=== PATIENT | female | born 1970 | race Caucasian/White ===

== ENCOUNTER 2018-09-02 16:11 | Inpatient (IN) | payer OTHER ==
--- NOTE | 2018-09-02 17:52 | PDOC ---
Attending Attestation - HPI HPI: 09/02/18 20:10 The patient is a 48 year old female with no PMH who presents to the ER with shortness of breath and bilateral leg swelling. Patient is on 3L of narcan at home and bipap at night. Patient denies cough, fever, chills, N/V/D/C. Allergies: sulfa Past surgical history: None reported. Social history: No reported alcohol, drug or cigarette use. - Physicial Exam PE: 09/02/18 20:37 ADULT PHYSICAL EXAM Constitutional: Awake, alert, oriented. No acute distress. Head: Normocephalic. Atraumatic Eyes: PERRL. EOMI. Conjunctivae are not pale. ENT: Mucous membranes are moist and intact. Posterior pharynx without exudates or erythema. Uvula midline. Neck: Supple. Full ROM. No lymphadenopathy. Cardiovascular: (+) Tachycardic. Regular rhythm. S1, S2 regular. Distal pulses are 2+ and symmetric. Pulmonary/Chest: (+) Orthopnea. (+) Conversational dyspnea. (+) Wheezing and diminished breath sounds bilaterally. (+) Hypoxic to the 70s when talking and up to the 90s at rest. Abdominal: Soft and non-distended. There is no tenderness. No rebound, guarding or rigidity. No organomegaly. No palpable masses. Good bowel sounds. Musculoskeletal: No cyanosis. No clubbing. Full range of motion in all extremities. Nocalf tenderness. Radial/pedal pulses are intact and 2+ bilaterally Skin: (+) Cellulitis to the lower abdomen and bilateral lower extremities. (+) Pitting edema and redness to the lower abdominal wall down to the lower extremities. Neurological: Alert and oriented to person, place, and time. Cranial nerves II -XII are grossly intact. Normal speech. Strength is grossly symmetric. No sensory deficits. Psychiatric: Good eye contact. Normal interaction, affect and behavior. <Deirdre Lopez - Last Filed: 09/02/18 20:39> - Resident Resident Name: Roxann Lyles - ED Attending Attestation I have performed the following: I have examined & evaluated the patient, The case was reviewed & discussed with the resident, I agree w/resident's findings & plan, Exceptions are as noted - Critical Care Time Total Critical Care Time: 45 Critical Care Statement: The care of this patient involved high complexity decision making to prevent further life threatening deterioration of the patient 's condition and/or to evaluate & treat vital organ system(s) failure or risk of failure. - Medical Decision Making 09/02/18 17:51 I, Dr. Karin Jefferson, DO, attest that this document has been prepared under my direction and personally reviewed by me in its entirety. I further attest, that it accurately reflects all work, treatment, procedures and medical decision -making performed by me. 09/02/18 19:59 a/p: 48yo female with SOB, Tachy, hypoxia, LE swelling -bedside ultrasound negative for acute pulm edema or pleural effusion -wheezing on exam -labs pending -abg -will start nebs, suspect copd exacerbation -also with LE swelling, concern for DVT/PE - will send for cta chest and duplex ultrasound legs -also concern for heart failure -pt wears 3L nc at home and bipap at night -no cough, no fevers -cellulitis to legs and lower abd- will add cultures and start vancomycin -pitting edema to abd wall, LE 09/02/18 21:11 pt with hypercapnic resp failure, will place on bipap, give nebs copd exacerbation chf exacerabtion LE cellulitis pt at CTA, then will microblog [facility] for admission 09/02/18 22:19 no dvt on ultrasound 09/02/18 23:56 cta negative for acute pe 09/02/18 23:56 microblog sent to [facility] for admission 09/03/18 00:27 resident discussed the case with [facility] who accepts the patient to service <Karin Jefferson - Last Filed: 09/03/18 00:27> Heart Score/ECG Review - ECG Intrepretation Comment:: 09/02/18 21:14 sinus at 95, R axis, nl interval, t wave inversions v3, III, avf, abnl ekg, baseline artifact <Karin Jefferson - Last Filed: 09/03/18 00:27>
[2018-09-02 19:48] LABS: INR 1.08 (0.83-1.09); PROTHROMBIN TIME (PATIENT) 12.7 SEC (9.7-13.0)
[2018-09-02 19:51] LABS: ACTIVATED PTT 28.4 SECONDS (25.2-36.5)
[2018-09-02] MEDS ORDERED: VANCOMYCIN 1 GM in D5W (PRE-DOCKED) 1,000 MG/250 ML IVPB ONE (19:58)
[2018-09-02] MEDS ORDERED: ALBUTEROL SO4 2.5/IPRATROPIUM 0.5 INH SOL 3 ML VIAL.NEB. NEB ONE ×3 (19:58→23:23)
[2018-09-02 20:02] LABS: ALBUMIN 2.7 g/dl (3.4-5.0); ALK PHOS 142 U/L (45-117); ANION GAP 4 MMOL/L (8-16); BILIRUBIN,TOTAL 0.3 mg/dL (0.2-1); BLOOD UREA NITROGEN 13 mg/dL (7-18); CALCIUM 8.1 mg/dL (8.5-10.1); CHLORIDE 101 mmol/L (98-107); CO2 39 mmol/L (21-32); CREATININE 0.7 mg/dL (0.55-1.3); GLUCOSE,RANDOM 114 mg/dL (74-106); MAGNESIUM 2.1 mg/dL (1.8-2.4); N-TERMINAL BNP 1741.3 pg/ml (5-125); POTASSIUM 4.3 mmol/L (3.5-5.1); SGOT/AST 19 U/L (15-37); SGPT/ALT 19 U/L (13-61); SODIUM 144 mmol/L (136-145); TOT PROT 6.3 g/dl (6.4-8.2)
[2018-09-02 20:12] LABS: BASO % 0.7 % (0-2.0); EOS % 1.2 % (0-4.5); HEMATOCRIT 46.5 % (32.4-45.2); HEMOGLOBIN 13.7 GM/dL (10.7-15.3); LYMPH % 18.1 % (8-40); MCH 22.2 pg (25.7-33.7); MCHC 29.6 g/dl (32.0-36.0); MEAN CELL VOLUME 74.9 fl (80-96); MEAN PLT VOLUME 8.8 fl (7.5-11.1); MONO % 10.5 % (3.8-10.2); NEUT % 69.5 % (42.8-82.8); PLATELET COUNT 253 K/MM3 (134-434); RBC 6.21 M/mm3 (3.60-5.2); RDW 23.3 % (11.6-15.6); WHITE BLOOD COUNT 3.9 K/mm3 (4.0-10.0)
[2018-09-02] MEDS ORDERED: methylPREDNISolone NA SUCC 125 MG/2 ML VIAL IVPUSH ONE (20:46)
[2018-09-02 20:47] LABS: ARTERIAL BLD GAS O2 SATURATION 85.2 % (90-98.9); ARTERIAL BLOOD GAS BASE EXCESS 8.7 meq/l (-2-2); ARTERIAL BLOOD GAS pH 7.32 (7.35-7.45); CARBOXYHEMOGLOBIN 1.4 gm% (0.5-2.0)
[2018-09-02] MEDS ORDERED: FUROSEMIDE 40 MG/4 ML INJECTABLE VIAL IVPUSH ONE (20:47)
[2018-09-02 20:49] LABS: ARTERIAL BLOOD GAS PCO2 74.6 mmHg (35-45)
--- NOTE | 2018-09-02 21:13 | PDOC ---
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 She states that it has become harder for her to get out of bed and walk. She endorses SOB. Denies chest pain, cough, fevers, chills, recent travel, OCP use, recent surgery, palpitations, syncope, n/v/d, alcohol use, drug use, headache, changes in vision , lightheadedness. She states she was placed on diuretics but they have not been helping as much. PMD: Jordan PMH: see hpi PSH: cholecystectomy, tubal ligation Meds: Metformin 500mg BID, Verapamil 240mg?, HCTZ, Xarelto Allergies: sulfa Social: quit tobacco 5 months ago, was smoking 1ppd Past History - Past Medical History Allergies/Adverse Reactions: Allergies Allergy/AdvReac Type Severity Reaction Status Date / Time Sulfa (Sulfonamide Allergy Severe Hives Verified 09/02/18 17:11 Antibiotics) COPD: Yes HTN: Yes Hypercholesterolemia: Yes - Suicide/Smoking/Psychosocial Hx Smoking History: Former smoker Have you smoked in the past 12 months: No If you are a former smoker, when did you quit?: 5 months ago Information on smoking cessation initiated: No Hx Alcohol Use: No Drug/Substance Use Hx: No Review of Systems - Review of Systems Constitutional: No: Chills, Fever, Weakness HEENTM: No: Eye Pain, Double Vision Respiratory: Yes: Shortness of Breath. No: Cough, Hemoptysis Cardiac (ROS): Yes: Edema. No: Chest Pain, Lightheadedness, Palpitations, Syncope, Chest Tightness ABD/GI: Yes: Abdominal Distended, Abdominal cramping. No: Constipated, Diarrhea , Nausea, Vomiting : No: Burning, Dysuria, Frequency, Flank Pain, Hematuria Musculoskeletal: No: Back Pain, Joint Pain, Neck Pain Integumentary: Yes: Erythema Neurological: No: Headache, Numbness, Tingling, Tremors, Weakness *Physical Exam - Vital Signs Last Vital Signs Temp Pulse Resp BP Pulse Ox 98.2 F 106 H 20 106/82 71 L 09/02/18 17:12 09/02/18 17:12 09/02/18 17:12 09/02/18 17:12 09/02/18 17:12 - Physical Exam General Appearance: Yes: Appropriately Dressed, Moderate Distress, Obese HEENT: positive: EOMI, DARLIN, Pharynx Normal Neck: positive: Trachea midline, Supple. negative: Lymphadenopathy (R), Lymphadenopathy (L) Respiratory/Chest: positive: Decreased Breath Sounds, Wheezing. negative: Crackles, Rales, Rhonchi Cardiovascular: positive: Regular Rate, S1, S2, Tachycardia. negative: Edema, JVD, Murmur Vascular Pulses: Carotid (R): 2+, Carotid (L): 2+ Gastrointestinal/Abdominal: positive: Soft, Distended. negative: Guarding, Rebound, Tenderness Musculoskeletal: negative: CVA Tenderness Extremity: positive: Normal Capillary Refill, Normal Inspection, Pedal Edema ( pitting edema up to thigh), Erythema. negative: Calf Tenderness, Inflammation Integumentary: positive: Normal Color, Dry, Warm, Erythema (on legs and abdomen) Neurologic: positive: top stop attacher II-XII NML intact, Fully Oriented, Alert, Normal Mood/ Affect, Normal Response, Motor Strength 5/5 Moderate Sedation - Procedure Monitoring Vital Signs: Procedure Monitoring Vital Signs Temperature 98.2 F 09/02/18 17:12 Pulse Rate 106 H 09/02/18 17:12 Respiratory Rate 20 09/02/18 17:12 Blood Pressure 106/82 09/02/18 17:12 O2 Sat by Pulse Oximetry (%) 71 L 09/02/18 17:12 ED Treatment Course - LABORATORY CBC & Chemistry Diagram: 09/02/18 19:10 09/02/18 19:10 - ADDITIONAL ORDERS Additional order review: Laboratory Results 09/02/18 09/02/18 09/02/18 20:00 19:10 19:10 PT with INR INR PTT (Actin FS) Anticoagulation Therapy No Result Required. Puncture Site No Result Required. ABG pH 7.32 L ABG pCO2 at Pt Temp 74.6 H* ABG pO2 at Pt Temp 59.0 L ABG HCO3 37.2 H ABG O2 Sat (Measured) 85.2 L ABG O2 Content 15.0 ABG Base Excess 8.7 H Wes Test No Result Required. Carboxyhemoglobin 1.4 Methemoglobin 0.2 L O2 Delivery Device No Result Required. Oxygen Flow Rate No Result Required. Vent Mode No Result Required. Vent Rate No Result Required. Mechanical Rate No Result Required. Pressure Support Vent No Result Required. Sodium 144 Potassium 4.3 Chloride 101 Carbon Dioxide 39 H Anion Gap 4 L BUN 13 Creatinine 0.7 Creat Clearance w eGFR > 60 Random Glucose 114 H Calcium 8.1 L Magnesium 2.1 Total Bilirubin 0.3 AST 19 ALT 19 Alkaline Phosphatase 142 H Troponin I 0.03 B-Natriuretic Peptide 1741.3 H Total Protein 6.3 L Albumin 2.7 L Serum , Qual Negative 09/02/18 19:10 PT with INR 12.70 INR 1.08 PTT (Actin FS) 28.4 Anticoagulation Therapy Puncture Site ABG pH ABG pCO2 at Pt Temp ABG pO2 at Pt Temp ABG HCO3 ABG O2 Sat (Measured) ABG O2 Content ABG Base Excess Wes Test Carboxyhemoglobin Methemoglobin O2 Delivery Device Oxygen Flow Rate Vent Mode Vent Rate Mechanical Rate Pressure Support Vent Sodium Potassium Chloride Carbon Dioxide Anion Gap BUN Creatinine Creat Clearance w eGFR Random Glucose Calcium Magnesium Total Bilirubin AST ALT Alkaline Phosphatase Troponin I B-Natriuretic Peptide Total Protein Albumin Serum , Qual 09/02/18 19:10 RBC 6.21 H MCV 74.9 L MCHC 29.6 L RDW 23.3 H MPV 8.8 Neutrophils % 69.5 Lymphocytes % 18.1 Monocytes % 10.5 H Eosinophils % 1.2 Basophils % 0.7 Medical Decision Making - Medical Decision Making 09/02/18 21:17 Pt is a 48yo F with PMH of COPD (on 3L O2 at home), HTN, HLD, Heroin use (13 years sober) presenting to ED with complaints of bilateral leg swelling, abdominal distension for 2 weeks. She states that it has become harder for her to get out of bed and walk. She endorses SOB. Denies chest pain, cough, fevers, chills, recent travel, OCP use, recent surgery, palpitations, syncope, n/v/d, alcohol use, drug use, headache, changes in vision, lightheadedness. She states she was placed on diuretics but they have not been helping as much. LMP 1 month ago Vitals: saturating 70s on RA, tachycardia, bp wnl, afebrile PE: decreased breath sounds, slight expiratory wheezing, distended abdomen, pitting edema up to thighs bilaterally, warm and erythematous legs and abdomen. Ddx includes but not limited to chf, copd, pe, cellulitis, dvt, ascites Placed pt on NRB- 100%, changed to NC, saturating low 90s/high 80s on 5L. HR 90-100. BP wnl. Pt talking in full sentences with some SOB. POCUS- no abdominal FF, b lines. -cbc, cmp, abg, coags, serum preg, ua, trop -ekg, CTA, CXR (cancelled), DVT study -lasix, duoneb, Bipap Lab significant for pH 7.32, PCO2 70s, HCO3 39. No anion gap. Most likely from retention and respiratory acidosis. pending US and CTA, UA 09/03/18 00:43 -US negative for DVT. shows edema CT neaative for PE. Air trapping seen in lungs. Pt saturating in 90s on RA. Speaking in full sentences without sob. normal white count EKG shows nsr. no donaldo or depressions. Will admit for chf, copd, hypercapnia. 09/03/18 00:43 *DC/Admit/Observation/Transfer Diagnosis at time of Disposition: COPD (chronic obstructive pulmonary disease) Qualifiers: COPD type: unspecified COPD Qualified Code(s): J44.9 - Chronic obstructive pulmonary disease, unspecified CHF (congestive heart failure) Qualifiers: Heart failure type: unspecified Heart failure chronicity: acute Qualified Code( s): I50.9 - Heart failure, unspecified Respiratory failure with hypercapnia Qualifiers: Chronicity: acute Qualified Code(s): J96.02 - Acute respiratory failure with hypercapnia - Discharge Dispostion Condition at time of disposition: Improved Decision to Admit order: Yes - Referrals - Patient Instructions - Post Discharge Activity
[2018-09-02 21:33] LABS: ANISOCYTOSIS 2+
[2018-09-02] MEDS ORDERED: VANCOMYCIN 1 GRAM (PRE-DOCKED) 1,000 MG/250 ML BAG IVPB ONE (23:23)
[2018-09-02] MEDS ORDERED: methylPREDNISolone NA SUCC 125 MG/2 ML VIAL ONE (23:24)
[2018-09-02] MEDS ORDERED: FUROSEMIDE 40 MG/4 ML INJECTABLE VIAL ONE (23:24)
[2018-09-03] MEDS ORDERED: ACETAMINOPHEN 1000 MG/100 ML VIAL (NON FORMULARY) IVPB ONE (00:28)
[2018-09-03] MEDS ORDERED: ACETAMINOPHEN INJECTION 100 ML IVPB ONE (00:45)
--- NOTE | 2018-09-03 00:46 | HP ---
CHIEF COMPLAINT: shortness of breath PCP: Cardio- Dr. Moe HISTORY OF PRESENT ILLNESS: 48F w/ pmhx of COPD (on 3L at home), HTN, HLD, NIDDM, stroke, heroin use presented to the ED with worsening shortness of breath, b/l leg swelling and abdominal distension for 2 weeks. Pt states she was previously seen at [facility] for her symptoms, but was subsequently discharged and told to follow up with her doctor. Since discharge, she continued to experience worsening shortness of breath as well as b/l ankle, leg and abdominal distension. She states she was diagnosed with CHF in 2016 at [facility] and takes a diuretic which as not been helping her. Denies chest pain, headaches, dizzines, f/c, changes in vision, lightheadedness, cough, OCP use, recent surgery. Since coming to the ED she was given Lasix 40 IVP, Solumedrol 125 IVP, Vancomycin 1g, and Duonebs. Since getting the Lasix in the ED, she admits to having 3 urinary episodes. 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 Family History: Has 2 sons, 1 daughter Mother- DM Father- CAD, Alzheimer's, DM 5 brothers- all healthy 1 sister- healthy Allergies Sulfa (Sulfonamide Antibiotics) Allergy (Severe, Verified 09/02/18 17:11) Hives HOME MEDICATIONS: Ambulatory Orders Albuterol Sulfate Inhaler - [Ventolin Hfa Inhaler -] 1 - 2 inh PO QID 09/03/18 Budesonide/Formeterol Fumarate [SYMBICORT 160/4.5mcg -] 2 inh PO BID 09/03/18 Folic Acid 1 mg PO DAILY 09/03/18 Furosemide 10 mg PO BID 09/03/18 Hydrochlorothiazide 25 mg PO DAILY 09/03/18 Metformin HCl [Glucophage] 500 mg PO BID 09/03/18 REVIEW OF SYSTEMS CONSTITUTIONAL: +generalized weakness Absent: fever, chills, diaphoresis, malaise, loss of appetite, weight change HEENT: Absent: rhinorrhea, nasal congestion, throat pain, throat swelling, difficulty swallowing, mouth swelling CARDIOVASCULAR: +peripheral edema Absent: chest pain, syncope, palpitations, irregular heart rate, lightheadedness , RESPIRATORY: +shortness of breath, dyspnea with exertion Absent: cough, orthopnea, wheezing, stridor, hemoptysis GASTROINTESTINAL: +abdominal pain, abdominal distension Absent: , nausea, vomiting, diarrhea, constipation, melena, hematochezia GENITOURINARY: +frequency Absent: dysuria, frequency, urgency, hesitancy, hematuria, flank pain MUSCULOSKELETAL: Absent: myalgia, arthralgia, joint swelling, back pain, neck pain NEUROLOGIC: Absent: headache, focal weakness or paresthesias, dizziness, unsteady gait, seizure, mental status changes, bladder or bowel incontinence PHYSICAL EXAMINATION Vital Signs - 24 hr 09/02/18 09/02/18 17:12 17:36 Temperature 98.2 F Pulse Rate 106 H Respiratory 20 Rate Blood Pressure 106/82 106/82 O2 Sat by Pulse 71 L 100 Oximetry (%) GENERAL: AAOx3. NAD. Resting comfortaby in bed. Speaks in complete sentences. HEENT: AT/NC. EOMI. DARLIN. Moist mucus membranes. NECK: Normal range of motion, supple without lymphadenopathy, JVD, or masses. LUNGS: CTA B/L. Symmetric chest rise. No HEART: RRR. Normal S1, S2. No murmurs noted. ABDOMEN: Obese. Soft, mildly TTP. Diffuse abdominal swelling; +redness throughout. MUSCULOSKELETAL: Normal range of motion at all joints. No bony deformities or tenderness. No CVA tenderness. UPPER EXTREMITIES: 2+ pulses, warm, well-perfused. No cyanosis. No clubbing. +b/ l UE swlling LOWER EXTREMITIES: 2+ pulses, warm, well-perfused. No calf tenderness. +b/l LE swelling, 3+ pitting edema. NEUROLOGICAL: Responds to commands. PSYCHIATRIC: Cooperative. Good eye contact. Appropriate mood and affect. SKIN: Anasarca. Diffuse redness throughout. Laboratory Results - last 24 hr 09/02/18 09/02/18 09/02/18 19:10 19:10 19:10 WBC 3.9 L RBC 6.21 H Hgb 13.7 Hct 46.5 H MCV 74.9 L MCH 22.2 L MCHC 29.6 L RDW 23.3 H Plt Count 253 MPV 8.8 Absolute Neuts (auto) 2.7 Neutrophils % 69.5 Lymphocytes % 18.1 Monocytes % 10.5 H Eosinophils % 1.2 Basophils % 0.7 Nucleated RBC % 1 H Poikilocytosis 1+ Anisocytosis 2+ Stomatocytes 1+ PT with INR 12.70 INR 1.08 PTT (Actin FS) 28.4 Anticoagulation Therapy Puncture Site ABG pH ABG pCO2 at Pt Temp ABG pO2 at Pt Temp ABG HCO3 ABG O2 Sat (Measured) ABG O2 Content ABG Base Excess Wes Test Carboxyhemoglobin Methemoglobin O2 Delivery Device Oxygen Flow Rate Vent Mode Vent Rate Mechanical Rate Pressure Support Vent Sodium 144 Potassium 4.3 Chloride 101 Carbon Dioxide 39 H Anion Gap 4 L BUN 13 Creatinine 0.7 Creat Clearance w eGFR > 60 Random Glucose 114 H Calcium 8.1 L Magnesium 2.1 Total Bilirubin 0.3 AST 19 ALT 19 Alkaline Phosphatase 142 H Troponin I 0.03 B-Natriuretic Peptide 1741.3 H Total Protein 6.3 L Albumin 2.7 L Serum , Qual 09/02/18 09/02/18 19:10 20:00 WBC RBC Hgb Hct MCV MCH MCHC RDW Plt Count MPV Absolute Neuts (auto) Neutrophils % Lymphocytes % Monocytes % Eosinophils % Basophils % Nucleated RBC % Poikilocytosis Anisocytosis Stomatocytes PT with INR INR PTT (Actin FS) Anticoagulation Therapy No Result Required. Puncture Site No Result Required. ABG pH 7.32 L ABG pCO2 at Pt Temp 74.6 H* ABG pO2 at Pt Temp 59.0 L ABG HCO3 37.2 H ABG O2 Sat (Measured) 85.2 L ABG O2 Content 15.0 ABG Base Excess 8.7 H Wes Test No Result Required. Carboxyhemoglobin 1.4 Methemoglobin 0.2 L O2 Delivery Device No Result Required. Oxygen Flow Rate No Result Required. Vent Mode No Result Required. Vent Rate No Result Required. Mechanical Rate No Result Required. Pressure Support Vent No Result Required. Sodium Potassium Chloride Carbon Dioxide Anion Gap BUN Creatinine Creat Clearance w eGFR Random Glucose Calcium Magnesium Total Bilirubin AST ALT Alkaline Phosphatase Troponin I B-Natriuretic Peptide Total Protein Albumin Serum , Qual Negative IMAGING: * CTA Chest: No gross evid of PE within main pulm artery and its proximal branches, b/l. Mild cardiomegaly. Subcentimeter and borderline mediastinal LN which are nonspecific. Mosaic pattern of the lung suggestive of air trapping. Atelectatic changes in the L upper lobe w/o gross evid of focal infiltrates, PTX , or pleural effusion. ASSESSMENT/PLAN: 48F w/ pmhx of COPD (on 3L at home), HTN, HLD, NIDDM, stroke, heroin use presented to the ED with worsening shortness of breath, b/l leg swelling and abdominal distension for 2 weeks. #Acute CHF exacerbation -Pt presented with worsening shortness of breath. On PE, she has anasarca. BNP elevated at 1741.3. She was given Lasix in the ED after which she responded well and had good urine output; likely acute CHF exacerbation. -Lasix 40 IVP given in ED; will continue Lasix 40 QD -daily weights, I/O's -Cont Duonebs/Albuterol; Will hold off on steroids for now -Trops, Prealbumin ordered -Influenza ordered; BCx taken -Pt is well-known to [facility]. Diastolic CHF with elevated PAP per verbal report with written pending from 06/2018 echo at [facility] She has frequent visits to the hospital and known hx of air trapping found on CT chest. Last stress test was in 2014. She currently sees Dr. Moe (cardio). Will need to obtain records in AM. #Anasarca/Abdominal swelling/diffuse erythema; likely 2/2 acute CHF exacerbation -Duplex showed no evid of DVT -Arterial dopplers ordered -Will hold Abx for now as unlikely cellulitis given pt is afebrile with no white count. -Per [facility], this is a chronic issue for her. #Hx of COPD -Likely not in exacerbation, but will treat with Duonebs if needed PRN #HTN -needs med rec #Pulmonary HTN -Last echo per [facility] revealed pulm HTN, elevated PAP. Will obtain records in AM from [facility]. #HLD -needs med rec #NIDDM -Hold home meds -BGM/ISS ACHS -A1c ordered #Hx of Stroke -No current neurological deficits #Prophylaxis -Lovenox 40 SQ #FEN -Limit PO intake due to fluid overload; no IV fluids -recheck lytes in AM -Diabetic/Sodium-controlled diet dispo -admit to tele inpatient -full code -Needs med rec Visit type - Emergency Visit Emergency Visit: Yes ED Registration Date: 09/02/18 Care time: The patient presented to the Emergency Department on the above date and was hospitalized for further evaluation of their emergent condition. - New Patient This patient is new to me today: Yes Date on this admission: 09/03/18 - Critical Care Critical Care patient: No
[2018-09-03 02:14] LABS: URINE APPEARANCE CLEAR; URINE BILIRUBIN NEGATIVE (<2.0 mg/dL); URINE COLOR STRAW; URINE GLUCOSE (UA) NEGATIVE (NEGATIVE); URINE KETONE NEGATIVE (NEGATIVE); URINE LEUK ESTERASE NEGATIVE (NEGATIVE); URINE NITRITE NEGATIVE (NEGATIVE); URINE PROTEIN NEGATIVE (NEGATIVE); URINE UROBILINOGEN NEGATIVE mg/dL (0.2-1.0)
--- NOTE | 2018-09-03 04:23 | PN ---
Teaching Attending Note Name of Resident: Aishwarya Martinez ATTENDING PHYSICIAN STATEMENT I saw and evaluated the patient. I reviewed the resident's note and discussed the case with the resident. I agree with the resident's findings and plan as documented. SUBJECTIVE: Seen and examined; please refer to resident note for further historical information. Briefly, this is a 48 y/o female presenting to the ER after being sent home from [facility]. She has a complaint of exertional SOB and worsening LE edema extending up to her abdomen. It has been worsening over the course of several weeks. She was able to ambulate in the ER without O2 to the washroom. She is speaking in full sentences. This is her first time being admitted to [facility]; as stated she normally goes to [facility] and has all her workup done there. She admits to a history of CHF. I spoke to the ER personally at [facility]; I am informed that she came in several times for similar issues. She was just discharged from in 07/2018 (was also there in jun for leg/abdominal pain and swelling also) for COPD/CHF; this appears to be a continuation of that issue. Echo done 06/2018 at [facility] mild concentric LVH with normal systolic function but evidence of LV-diastolic dysfunction. PAP 54mmHg (moderate pulmonary HTN) also mentioned). She had a stress test in 2014 but the reading isn't available. She gave a list of medications from memory that have odd dosing; will confirm with her pharmacy prior to continuing. 10 sys ROS done and negative aside from HPI PMH, PSH, Family hx, Social hx reviewed Medication reconciliation pending OBJECTIVE: VS, labs, imaging reviewed NAD, AAO, resting comfortably in bed NC AT EOMI PERRLA RRR s1/2 no mgr Lungs with very mild crackles, w/ sym exp NT ND +BS. pitting edema extending to lower abdomen from her legs CN2-12 wnl, no fnd Normal mood, appropriate affect EKG reviewed Old records discussed with [facility] ER; pending faxed over in the AM CTA chest shows no PE with mild cardiomegally and mosaic pattern of the lung suggesting air trapping. ASSESSMENT AND PLAN: Patient presents with months of increasing LE/abdominal edema and some mild acute on chronic SOB. Recently seen for same issues at [facility] with recent workup done. She is hemodynamically stable and afebrile. Was walking without O2 earlier in the ER but initially 80's (3L documented at home). 1) Acute Hypoxia -Based on anasarca, clinical history, etc. likely 2/2 CHF exacerbation though she is a former smoker with a large history so COPD should also be considered though would be much less likely. Will discuss separately. Improved now. PRN O2 and incentive spirometry. ABG shows a primary chronic respiratory acidosis with secondary metabolic alkalosis. Suspect potential for underlying LYNDON, etc. She is on 3L at home and is saturating well with this. 2) CHF exacerbation, likely diastolic, with anasarca -Diastolic CHF with elevated PAP per verbal report with written pending from 2018 echo at [facility]. Diurese with 40 IV QD (stated was on 10 BID at home), consult CV (her's appears to be associated with the [facility] group-Dr. Moe ). Confirm home meds and resume GDMT. Will defer further workup and treatment to CV. Monitor renal function and optimize K/Mg 3) Anasarca with leg/abdominal pain -This does not represent cellulitis; hold off on abx. The chances of her having 1/2 of her body area covered in celluitis with a normal white count and no fever is very low. Likely 2/2 #1. Will obtain venous and arterial dopplers to r/o any underlying vascular disease. This is, per the ER at [facility], a chronic issue for her 4) Hx COPD -Indication of air trapping on CXR; recently got treated at [facility] for CHF and got nebs there as well. Will do ATC nebs and continue home long actings; if no improvement with tx CHF will treat her COPD, but I feel that the CHF is likely the primary process at this moment. 5) HTN -Verify and continue home medications 6) Pulmonary HTN (PAP 54 on recent echo) -Noted 7) HLD -Verify and continue home medications 8) DM -Hold PO meds; SSI. A1c can be checked as OP 9) Hx CVA -Verify and continue home meds; would be helpful to review old records to see what exactly caused this, etc. 10) Hx Heroin abuse -Noted; will check old records from [facility].
[2018-09-03] MEDS: INSULIN SLIDING SCALE (NOVOLOG) 1 VIAL SQ SCH ×4 (06:35→23:21)
[2018-09-03 07:02] LABS: BASO % 0.4 % (0-2.0); EOS % 0.1 % (0-4.5); HEMATOCRIT 46.1 % (32.4-45.2); HEMOGLOBIN 13.8 GM/dL (10.7-15.3); LYMPH % 7.1 % (8-40); MCH 22.3 pg (25.7-33.7); MCHC 29.8 g/dl (32.0-36.0); MEAN CELL VOLUME 74.7 fl (80-96); MEAN PLT VOLUME 9.1 fl (7.5-11.1); MONO % 1.8 % (3.8-10.2); NEUT % 90.6 % (42.8-82.8); PLATELET COUNT 229 K/MM3 (134-434); RBC 6.17 M/mm3 (3.60-5.2); RDW 23.3 % (11.6-15.6); WHITE BLOOD COUNT 4.6 K/mm3 (4.0-10.0)
[2018-09-03 08:11] LABS: ALBUMIN 2.7 g/dl (3.4-5.0); ALK PHOS 161 U/L (45-117); ANION GAP 7 MMOL/L (8-16); BILIRUBIN,TOTAL 0.5 mg/dL (0.2-1); BLOOD UREA NITROGEN 17 mg/dL (7-18); CALCIUM 8.2 mg/dL (8.5-10.1); CHLORIDE 97 mmol/L (98-107); CO2 36 mmol/L (21-32); GLUCOSE,RANDOM 214 mg/dL (74-106); POTASSIUM 4.4 mmol/L (3.5-5.1); PREALBUMIN 12.4 mg/dl (20-40); SGOT/AST 17 U/L (15-37); SGPT/ALT 19 U/L (13-61); SODIUM 140 mmol/L (136-145); TOT PROT 6.5 g/dl (6.4-8.2)
[2018-09-03] MEDS ORDERED: ALBUTEROL SO4 2.5/IPRATROPIUM 0.5 INH SOL 3 ML VIAL.NEB. NEB PRN (08:33)
--- NOTE | 2018-09-03 09:00 | PN ---
Physical Exam: SUBJECTIVE: Patient seen and examined at bedside no acute events overnight; patient states that she is in a lot of pain with her legs and the abdominal swelling is very uncomfortable for her but she feels her breathing is a little better thus far; denies CP/N/V fevers or chills OBJECTIVE: Vital Signs Period Temp Pulse Resp BP Sys/Sun Pulse Ox Last 24 Hr 98.2 F-98.6 F 88-106 19-20 106-144/66-88 71-100 GENERAL: The patient is awake, alert, and fully oriented, in no acute distress. EYES: PEERLA; EOMI; no scleral icterus. NECK: no JVD; no lympahdenopathy LUNGS: diminished breath sounds at the bases; no rales, wheezes. HEART: Regular rate and rhythm, S1, S2 without murmur, rub or gallop. ABDOMEN: obese; distended striations; painful to touch;' slightly erythematous. EXTREMITIES: b/l 2+ pitting edema warm; tender to touch. PSYCH: Normal mood, normal affect. SKIN: Warm, dry, normal turgor, no rashes or lesions noted Laboratory Results - last 24 hr 09/02/18 09/02/18 09/02/18 19:10 19:10 19:10 WBC 3.9 L RBC 6.21 H Hgb 13.7 Hct 46.5 H MCV 74.9 L MCH 22.2 L MCHC 29.6 L RDW 23.3 H Plt Count 253 MPV 8.8 Absolute Neuts (auto) 2.7 Neutrophils % 69.5 Lymphocytes % 18.1 Monocytes % 10.5 H Eosinophils % 1.2 Basophils % 0.7 Nucleated RBC % 1 H Poikilocytosis 1+ Anisocytosis 2+ Stomatocytes 1+ PT with INR 12.70 INR 1.08 PTT (Actin FS) 28.4 Anticoagulation Therapy Puncture Site ABG pH ABG pCO2 at Pt Temp ABG pO2 at Pt Temp ABG HCO3 ABG O2 Sat (Measured) ABG O2 Content ABG Base Excess Wes Test Carboxyhemoglobin Methemoglobin O2 Delivery Device Oxygen Flow Rate Vent Mode Vent Rate Mechanical Rate Pressure Support Vent Sodium 144 Potassium 4.3 Chloride 101 Carbon Dioxide 39 H Anion Gap 4 L BUN 13 Creatinine 0.7 Creat Clearance w eGFR > 60 POC Glucometer Random Glucose 114 H Calcium 8.1 L Magnesium 2.1 Total Bilirubin 0.3 AST 19 ALT 19 Alkaline Phosphatase 142 H Troponin I 0.03 B-Natriuretic Peptide 1741.3 H Total Protein 6.3 L Albumin 2.7 L Prealbumin Serum , Qual Urine Color Urine Appearance Urine pH Ur Specific Wolf Urine Protein Urine Glucose (UA) Urine Ketones Urine Blood Urine Nitrite Urine Bilirubin Urine Urobilinogen Ur Leukocyte Esterase 09/02/18 09/02/18 09/03/18 19:10 20:00 02:00 WBC RBC Hgb Hct MCV MCH MCHC RDW Plt Count MPV Absolute Neuts (auto) Neutrophils % Lymphocytes % Monocytes % Eosinophils % Basophils % Nucleated RBC % Poikilocytosis Anisocytosis Stomatocytes PT with INR INR PTT (Actin FS) Anticoagulation Therapy No Result Required. Puncture Site No Result Required. ABG pH 7.32 L ABG pCO2 at Pt Temp 74.6 H* ABG pO2 at Pt Temp 59.0 L ABG HCO3 37.2 H ABG O2 Sat (Measured) 85.2 L ABG O2 Content 15.0 ABG Base Excess 8.7 H Wes Test No Result Required. Carboxyhemoglobin 1.4 Methemoglobin 0.2 L O2 Delivery Device No Result Required. Oxygen Flow Rate No Result Required. Vent Mode No Result Required. Vent Rate No Result Required. Mechanical Rate No Result Required. Pressure Support Vent No Result Required. Sodium Potassium Chloride Carbon Dioxide Anion Gap BUN Creatinine Creat Clearance w eGFR POC Glucometer Random Glucose Calcium Magnesium Total Bilirubin AST ALT Alkaline Phosphatase Troponin I B-Natriuretic Peptide Total Protein Albumin Prealbumin Serum , Qual Negative Urine Color Straw Urine Appearance Clear Urine pH 6.0 Ur Specific Wolf 1.012 Urine Protein Negative Urine Glucose (UA) Negative Urine Ketones Negative Urine Blood Negative Urine Nitrite Negative Urine Bilirubin Negative Urine Urobilinogen Negative Ur Leukocyte Esterase Negative 09/03/18 09/03/18 09/03/18 05:30 05:30 06:29 WBC 4.6 RBC 6.17 H Hgb 13.8 Hct 46.1 H MCV 74.7 L MCH 22.3 L MCHC 29.8 L RDW 23.3 H Plt Count 229 MPV 9.1 Absolute Neuts (auto) 4.1 Neutrophils % 90.6 H Lymphocytes % 7.1 L D Monocytes % 1.8 L D Eosinophils % 0.1 D Basophils % 0.4 Nucleated RBC % 0 Poikilocytosis Anisocytosis Stomatocytes PT with INR INR PTT (Actin FS) Anticoagulation Therapy Puncture Site ABG pH ABG pCO2 at Pt Temp ABG pO2 at Pt Temp ABG HCO3 ABG O2 Sat (Measured) ABG O2 Content ABG Base Excess Wes Test Carboxyhemoglobin Methemoglobin O2 Delivery Device Oxygen Flow Rate Vent Mode Vent Rate Mechanical Rate Pressure Support Vent Sodium 140 Potassium 4.4 Chloride 97 L Carbon Dioxide 36 H Anion Gap 7 L BUN 17 Creatinine 1.0 Creat Clearance w eGFR 58.93 POC Glucometer 244 Random Glucose 214 H Calcium 8.2 L Magnesium Total Bilirubin 0.5 AST 17 ALT 19 Alkaline Phosphatase 161 H Troponin I 0.02 B-Natriuretic Peptide Total Protein 6.5 Albumin 2.7 L Prealbumin 12.4 L Serum , Qual Urine Color Urine Appearance Urine pH Ur Specific Wolf Urine Protein Urine Glucose (UA) Urine Ketones Urine Blood Urine Nitrite Urine Bilirubin Urine Urobilinogen Ur Leukocyte Esterase Active Medications Generic Name Dose Route Start Last Admin Trade Name Freq PRN Reason Stop Dose Admin Albuterol/Ipratropium 1 amp 09/03/18 08:33 Duoneb - NEB Q6H PRN SHORTNESS OF BREATH Albuterol/Ipratropium 1 amp 09/03/18 14:00 Duoneb - NEB RTID [facility] Enoxaparin Sodium 40 mg 09/03/18 10:00 Lovenox - SQ DAILY [facility] Furosemide 40 mg 09/03/18 10:00 Lasix Injection - IVPUSH DAILY [facility] Insulin Aspart 1 vial 09/03/18 07:00 09/03/18 06:35 Novolog Vial Sliding Scale - SQ 4 units ACHS [facility] Administration Protocol Fluticasone/Salmeterol 1 puff 09/03/18 10:00 Advair 100mcg/50mcg - IH BID [facility] ASSESSMENT/PLAN: 48F w/ pmhx of COPD (on 3L at home), HTN, HLD, NIDDM, stroke, heroin use presented to the ED with worsening shortness of breath, b/l leg swelling and abdominal distension for 2 weeks. #Acute CHF exacerbation -Pt presented with worsening shortness of breath. On PE, she has anasarca. BNP elevated at 1741.3. She was given Lasix in the ED after which she responded well and had good urine output; likely acute CHF exacerbation. -lasix 40 IV BID -daily weights, I/O's -Cont Duonebs/Albuterol; -Influenza ordered : negative -Pt is well-known to [facility]. in process of getting records #Anasarca/Abdominal swelling/diffuse erythema; likely 2/2 acute CHF exacerbation -Duplex showed no evidence of DVT -Arterial dopplers ordered -Will hold Abx for now as unlikely cellulitis given pt is afebrile with no white count. -Per [facility], this is a chronic issue for her. #Hx of COPD -Likely not in exacerbation, but will treat with Duonebs if needed PRN #HTN -c/w hydralazine and verapamil #Pulmonary HTN -Last echo per [facility] revealed pulm HTN, elevated PAP. Will obtain records in AM from [facility]. #HLD not on meds as per pharmacy #NIDDM -Holding home metformin -BGM/ISS ACHS -a1c is 6.1 #Hx of Stroke -No current neurological deficits #Prophylaxis -Lovenox 40 SQ Problem List - Problems (1) CHF (congestive heart failure) Code(s): I50.9 - HEART FAILURE, UNSPECIFIED Qualifiers: Heart failure type: unspecified Heart failure chronicity: acute Qualified Code(s): I50.9 - Heart failure, unspecified (2) COPD (chronic obstructive pulmonary disease) Code(s): J44.9 - CHRONIC OBSTRUCTIVE PULMONARY DISEASE, UNSPECIFIED Qualifiers: COPD type: unspecified COPD Qualified Code(s): J44.9 - Chronic obstructive pulmonary disease, unspecified Visit type - Emergency Visit Emergency Visit: Yes ED Registration Date: 09/02/18 Care time: The patient presented to the Emergency Department on the above date and was hospitalized for further evaluation of their emergent condition. - New Patient This patient is new to me today: Yes Date on this admission: 09/03/18 - Critical Care Critical Care patient: No
[2018-09-03] MEDS ORDERED: FUROSEMIDE 40 MG/4 ML INJECTABLE VIAL IVPUSH SCH (10:00)
[2018-09-03] MEDS ORDERED: ENOXAPARIN NA (PORCINE) 40 MG/0.4 ML DISP.SYRIN SQ SCH ×2 (10:00→22:00)
[2018-09-03] MEDS: FLUTICASONE/SALMETEROL 100 MCG/50 MCG DISKUS IH SCH ×2 (10:45→23:20)
[2018-09-03] MEDS: ALBUTEROL SO4 2.5/IPRATROPIUM 0.5 INH SOL 3 ML VIAL.NEB. NEB SCH ×2 (14:08→20:00)
--- NOTE | 2018-09-03 14:21 | EKG ---
Test Reason : Blood Pressure : / mmHG Vent. Rate : 095 BPM Atrial Rate : 095 BPM P-R Int : 142 ms QRS Dur : 066 ms QT Int : 338 ms P-R-T Axes : 056 121 002 degrees QTc Int : 424 ms POOR DATA QUALITY, INTERPRETATION MAY BE ADVERSELY AFFECTED NORMAL SINUS RHYTHM POSSIBLE LEFT ATRIAL ENLARGEMENT RIGHT AXIS DEVIATION NONSPECIFIC T WAVE ABNORMALITY ABNORMAL ECG NO PREVIOUS ECGS AVAILABLE Confirmed by BROCK MEDINA, SANGITA ([id number]) on 09/03/2018 2:20:43 PM Referred By: Confirmed By:SANGITA GUTIÉRREZ MD
--- NOTE | 2018-09-03 15:09 | CON.CARD ---
Consult Consult Specialty:: Cardiology Reason for Consultation:: Fluid overload - History of Present Illness Chief Complaint: Lower extremity edema. Abdominal distention. ANAYA History of Present Illness: This is a 48 year old female with a PMH of COPD and is on home O2, HTN, HLD, possible past TIA, and heroin use in the past. She presents to the ED with the complaint of 2 weeks of worsening lower extremity edema, abdominal distension, and progressive ANAYA. EKG showed NSR with right axis deviation, normal intervals, and NSSTTW changes. Troponin negative BNP 1,741 - Past Medical History ...: No - Alcohol/Substance Use Hx Alcohol Use: No - Smoking History Smoking history: Former smoker Have you smoked in the past 12 months: No If you are a former smoker, when did you quit?: 5 months ago Home Medications - Allergies Allergies/Adverse Reactions: Allergies Allergy/AdvReac Type Severity Reaction Status Date / Time Sulfa (Sulfonamide Allergy Severe Hives Verified 09/02/18 17:11 Antibiotics) - Home Medications Home Medications: Ambulatory Orders Albuterol Sulfate Inhaler - [Ventolin Hfa Inhaler -] 1 - 2 inh PO QID 09/03/18 Budesonide/Formeterol Fumarate [SYMBICORT 160/4.5mcg -] 2 inh PO BID 09/03/18 Folic Acid 1 mg PO DAILY 09/03/18 Furosemide 40 mg PO BID 09/03/18 Gabapentin [Neurontin -] 100 mg PO Q8H 09/03/18 Hydralazine HCl 50 mg PO DAILY 09/03/18 Metformin HCl [Glucophage] 500 mg PO BID 09/03/18 Verapamil HCl [Verapamil ER] 240 mg PO BID 09/03/18 Vital Signs: Vital Signs Temperature 98.4 F 09/03/18 14:00 Pulse Rate 86 09/03/18 14:00 Respiratory Rate 20 09/03/18 14:00 Blood Pressure 151/93 09/03/18 14:00 O2 Sat by Pulse Oximetry (%) 90 L 09/03/18 01:41 Constitutional: Yes: No Distress HENT: Yes: WNL Neck: Yes: WNL Respiratory: Yes: CTA Bilaterally Gastrointestinal: Yes: Distention Cardiovascular: Yes: Regular Rate and Rhythm (NL S1S2 no MRHG) JVD: Yes Edema: LLE: 2+, RLE: 2+ Neurological: Yes: Alert, Oriented - Other Data Labs, Other Data: CBC, BMP 09/03/18 05:30 09/03/18 05:30 INR, PTT INR 1.08 (0.83-1.09) 09/02/18 19:10 Troponin, BNP 09/02/18 09/03/18 19:10 05:30 Troponin I 0.03 0.02 B-Natriuretic Peptide 1741.3 H Troponin, BNP 09/02/18 09/03/18 19:10 05:30 Troponin I 0.03 0.02 B-Natriuretic Peptide 1741.3 H Assessment/Plan 48 year old female with a PMH of COPD and is on home O2, HTN, HLD, possible past TIA, and heroin use in the past. She presents to the ED with the complaint of 2 weeks of worsening lower extremity edema, abdominal distension, and progressive ANAYA. EKG showed NSR with right axis deviation, normal intervals, and NSSTTW changes. Troponin negative BNP 1,741 CHF Obtain an echocardiogram Continue Lasix 40 mg IVSS BID Daily I's/O's/Wt's/Lytes Further plans once know if this is HFpEF vs HFrEF Will follow with you
--- NOTE | 2018-09-03 17:55 | PN ---
Teaching Attending Note Name of Resident: Oliva García ATTENDING PHYSICIAN STATEMENT I saw and evaluated the patient. I reviewed the resident's note and discussed the case with the resident. I agree with the resident's findings and plan as documented. SUBJECTIVE: No fever or chills . No SOB , feels better after initial diuresis OBJECTIVE: NAD , awake, alert, cooperative CV: RRR, no MRG Lungs: decreased breath sounds both lung camara Ext : 2+ edema on legs , and on abd wall wiht increased warmth and erythema Abd: abd wall edema , tenderness, increased warmth and erythema ASSESSMENT AND PLAN: 48 y/o lady with h/o DM , HTN, D CHF, COPD on 3 L of O2 at home , heroin abuse ( many years ago ) , CVA, recent admission to [facility] for CHF and non compliance who presented with SOb and worsening LE edema after stopping her home lasix . she was diagnosed with Acute diastolic heart fialure exacerbation 1- Acute on chronic diastolic CHF exacerbation: - increased lasix to 40 BID - monitor weight . - No evidence of cellulitis on abd wall or ext - echo pending . - request snet to obtain records from [facility] 2- HTN: pharmacy called . she is on verapamil 240 BId and hydralazine 50 daily . - adjust meds and increase HZN to 50 BID and change verapamil to 240 daily - monitor 3- h/o COPD : not in exacerbation - cont Nebs - cont home O2 4- DM : SSI . A1c 6.1 but sugar > 200 5- LE edema , du eto heart failure , no cellulitis. US with No DVT. dc arterial doppler DVT X HLOC
[2018-09-03] MEDS ORDERED: RIVAROXABAN 20 MG TABLET PO SCH (18:00)
[2018-09-03] MEDS ORDERED: PT OWN MED DRAWER 7, Y5N ONE (22:14)
[2018-09-03] MEDS: hydrALAZINE HCL 25 MG TABLET (FP) PO SCH (23:19)
[2018-09-03] MEDS: FUROSEMIDE 40 MG/4 ML INJECTABLE VIAL IVPUSH SCH (23:20)
[2018-09-04] MEDS ORDERED: ACETAMINOPHEN 325 MG TABLET (FP) PO ONE ×2 (00:17→00:45)
[2018-09-04] MEDS ORDERED: ACETAMINOPHEN 325 MG TABLET (FP) ONE (00:26)
[2018-09-04] MEDS: INSULIN SLIDING SCALE (NOVOLOG) 1 VIAL SQ SCH ×3 (06:20→17:03)
[2018-09-04] MEDS: FUROSEMIDE 40 MG/4 ML INJECTABLE VIAL IVPUSH SCH ×2 (06:21→14:18)
[2018-09-04 07:31] LABS: ANION GAP 4 MMOL/L (8-16); BLOOD UREA NITROGEN 18 mg/dL (7-18); CALCIUM 7.9 mg/dL (8.5-10.1); CHLORIDE 97 mmol/L (98-107); CO2 39 mmol/L (21-32); CREATININE 0.8 mg/dL (0.55-1.3); GLUCOSE,RANDOM 93 mg/dL (74-106); PHOSPHOROUS 4.8 mg/dL (2.5-4.9); POTASSIUM 4.2 mmol/L (3.5-5.1); SODIUM 141 mmol/L (136-145)
[2018-09-04] MEDS: ALBUTEROL SO4 2.5/IPRATROPIUM 0.5 INH SOL 3 ML VIAL.NEB. NEB SCH ×3 (08:00→20:48)
[2018-09-04 08:59] LABS: HEMATOCRIT 44.3 % (32.4-45.2); HEMOGLOBIN 13.1 GM/dL (10.7-15.3); MCH 22.1 pg (25.7-33.7); MCHC 29.6 g/dl (32.0-36.0); MEAN CELL VOLUME 74.9 fl (80-96); MEAN PLT VOLUME 8.7 fl (7.5-11.1); PLATELET COUNT 255 K/MM3 (134-434); RBC 5.92 M/mm3 (3.60-5.2); RDW 23.2 % (11.6-15.6); WHITE BLOOD COUNT 3.2 K/mm3 (4.0-10.0)
--- NOTE | 2018-09-04 09:35 | PN ---
Physical Exam: SUBJECTIVE: Patient seen and examined at bedside- no acute events overnight; patient states she feels her breathing is slightly improving though she needs oxygen consistently(this is baseline for her) and states she is urinating alot; denies any CP/N/V fevers or chills OBJECTIVE: Vital Signs Period Temp Pulse Resp BP Sys/Sun Pulse Ox Last 24 Hr 97.5 F-98.4 F 85-107 20-20 116-152/66-99 94-96 GENERAL: The patient is awake, alert, and fully oriented, in no acute distress. EYES: PEERLA; EOMI; no scleral icterus. . NECK: no JVD; no lymphadenopathy LUNGS: CTA B/L; no rales, rhonchi or wheezing. HEART: Regular rate and rhythm, S1, S2 without murmur, rub or gallop. ABDOMEN: distended; non-tender; striation present; +BS slightly erythematous and warm to touch EXTREMITIES: 2+ pulses, warm to touch B/L; 1-2+ pitting edema B/L PSYCH: Normal mood, normal affect. SKIN: Warm, dry, normal turgor, no rashes or lesions noted Laboratory Results - last 24 hr 09/03/18 09/03/18 09/03/18 05:30 06:00 23:18 WBC RBC Hgb Hct MCV MCH MCHC RDW Plt Count MPV Sodium Potassium Chloride Carbon Dioxide Anion Gap BUN Creatinine Creat Clearance w eGFR POC Glucometer 239 Random Glucose Hemoglobin A1c % 6.1 Calcium Phosphorus Magnesium Influenza A (Rapid) Negative Influenza B (Rapid) Negative 09/04/18 09/04/18 09/04/18 05:50 05:50 06:19 WBC 3.2 L RBC 5.92 H Hgb 13.1 Hct 44.3 MCV 74.9 L MCH 22.1 L MCHC 29.6 L RDW 23.2 H Plt Count 255 MPV 8.7 Sodium 141 Potassium 4.2 Chloride 97 L Carbon Dioxide 39 H Anion Gap 4 L BUN 18 Creatinine 0.8 Creat Clearance w eGFR > 60 POC Glucometer 111 Random Glucose 93 Hemoglobin A1c % Calcium 7.9 L Phosphorus 4.8 Magnesium 2.0 Influenza A (Rapid) Influenza B (Rapid) Active Medications Generic Name Dose Route Start Last Admin Trade Name Freq PRN Reason Stop Dose Admin Albuterol/Ipratropium 1 amp 09/03/18 08:33 Duoneb - NEB Q6H PRN SHORTNESS OF BREATH Albuterol/Ipratropium 1 amp 09/03/18 14:00 09/03/18 20:00 Duoneb - NEB 1 amp RTID [facility]GIE Administration Furosemide 40 mg 09/03/18 22:00 09/04/18 06:21 Lasix Injection - IVPUSH 40 mg BIDLASIX [facility] Administration Hydralazine HCl 25 mg 09/03/18 22:00 09/03/18 23:19 Apresoline - PO 25 mg BID [facility] Administration Insulin Aspart 1 vial 09/03/18 07:00 09/04/18 06:20 Novolog Vial Sliding Scale - SQ Not Given ACHS [facility] Protocol Rivaroxaban 20 mg 09/04/18 18:00 Xarelto - PO DAILY@1800 ANGIE Fluticasone/Salmeterol 1 puff 09/03/18 10:00 09/03/18 23:20 Advair 100mcg/50mcg - IH 1 puff BID [facility] Administration Verapamil HCl 240 mg 09/04/18 10:00 Calan Sr - PO DAILY [facility] ASSESSMENT/PLAN: 48F w/ pmhx of COPD (on 3L at home), HTN, HLD, NIDDM, stroke, heroin use presented to the ED with worsening shortness of breath, b/l leg swelling and abdominal distension for 2 weeks. #Acute CHF exacerbation -weight this AM went from 119kg to 116 kg -lasix 40 IV BID -repeat echo pending -daily weights, I/O's -Cont Duonebs/Albuterol; -Influenza ordered : negative -Pt is well-known to [facility] in process of getting records #Anasarca/Abdominal swelling/diffuse erythema; likely 2/2 acute CHF exacerbation -Duplex showed no evidence of DVT -Arterial dopplers ordered -Will hold Abx for now as unlikely cellulitis given pt is afebrile with no white count. -Per [facility], this is a chronic issue for her. #Hx of COPD -Likely not in exacerbation, but will treat with Duonebs if needed PRN #HTN -c/w hydralazine 25 BID and verapamil 240 daily #Pulmonary HTN -Last echo per [facility] revealed pulm HTN, elevated PAP. Will obtain records in AM from [facility]. #HLD not on meds as per pharmacy #NIDDM -Holding home metformin -BGM/ISS ACHS -a1c is 6.1 #Hx of Stroke -No current neurological deficits -c/w xarelto 20 daily DVT PPX; xarelto 20 daily Problem List - Problems (1) CHF (congestive heart failure) Code(s): I50.9 - HEART FAILURE, UNSPECIFIED Qualifiers: Heart failure type: unspecified Heart failure chronicity: acute Qualified Code(s): I50.9 - Heart failure, unspecified (2) COPD (chronic obstructive pulmonary disease) Code(s): J44.9 - CHRONIC OBSTRUCTIVE PULMONARY DISEASE, UNSPECIFIED Qualifiers: COPD type: unspecified COPD Qualified Code(s): J44.9 - Chronic obstructive pulmonary disease, unspecified Visit type - Emergency Visit Emergency Visit: Yes ED Registration Date: 09/02/18 Care time: The patient presented to the Emergency Department on the above date and was hospitalized for further evaluation of their emergent condition. - New Patient This patient is new to me today: No - Critical Care Critical Care patient: No
[2018-09-04] MEDS ORDERED: VERAPAMIL HCL 240 MG E.R. TABLET (FP) PO SCH (10:00)
[2018-09-04] MEDS: hydrALAZINE HCL 25 MG TABLET (FP) PO SCH (10:04)
[2018-09-04] MEDS: FLUTICASONE/SALMETEROL 100 MCG/50 MCG DISKUS IH SCH ×2 (10:08→21:43)
--- NOTE | 2018-09-04 11:52 | PN ---
Teaching Attending Note Name of Resident: Oliva García ATTENDING PHYSICIAN STATEMENT I saw and evaluated the patient. I reviewed the resident's note and discussed the case with the resident. I agree with the resident's findings and plan as documented. SUBJECTIVE: no fever or chills . No abd pain ,SOB is getting better. OBJECTIVE: NAD, awake, alert, cooperative CV: RRR, no MRG Lungs: decreased breath sounds both lung camara Ext : 2+ edema on legs , and on abd wall with increased warmth and erythema ( improved though ) ASSESSMENT AND PLAN: 48 y/o lady with h/o DM , HTN, D CHF, COPD on 3 L of O2 at home , heroin abuse ( many years ago ) , CVA, recent admission to [facility] for CHF and non compliance who presented with SOb and worsening LE edema after stopping her home lasix . she was diagnosed with Acute diastolic heart fialure exacerbation 1- Acute on chronic diastolic CHF exacerbation: improved, weight decreased - cont lasix at 40 BID - monitor weight . - echo pending . - request sent to obtain records from [facility] 2- HTN: - place back on her home regimen. verapamil BId and hydralazin daily. not sure of indication of this dosing, but since she has a h/o stroke and being on xarelto, I wonder if she was diagnosed with A fib in past. she denies. will review records. 3- h/o COPD: not in exacerbation - cont Nebs - cont home O2 4- DM : SSI . A1c 6.1 but sugar > 200 5- LE edema , due to heart failure , no cellulitis. 6- Microcytosis: will start w/u with iron studies 7- Morbid Obesity: will rfer to Dr. Hatch for weight loss sx as outpt DVT PX: on xarelto HLOC
[2018-09-04] MEDS ORDERED: PT OWN MED DRAWER 7, Y5N ONE ×2 (15:08→21:04)
[2018-09-04] MEDS: RIVAROXABAN 20 MG TABLET PO SCH (17:03)
[2018-09-04] MEDS: VERAPAMIL HCL 240 MG E.R. TABLET (FP) PO SCH (21:42)
[2018-09-05] MEDS: FUROSEMIDE 40 MG/4 ML INJECTABLE VIAL IVPUSH SCH ×2 (06:48→14:35)
[2018-09-05] MEDS: INSULIN SLIDING SCALE (NOVOLOG) 1 VIAL SQ SCH ×4 (06:48→21:23)
[2018-09-05 07:30] LABS: ANION GAP 2 MMOL/L (8-16); BLOOD UREA NITROGEN 16 mg/dL (7-18); CHLORIDE 96 mmol/L (98-107); CO2 41 mmol/L (21-32); CREATININE 0.8 mg/dL (0.55-1.3); GLUCOSE,RANDOM 95 mg/dL (74-106); MAGNESIUM 2.3 mg/dL (1.8-2.4); PHOSPHOROUS 4.5 mg/dL (2.5-4.9); POTASSIUM 4.7 mmol/L (3.5-5.1); SODIUM 138 mmol/L (136-145)
[2018-09-05] MEDS: ALBUTEROL SO4 2.5/IPRATROPIUM 0.5 INH SOL 3 ML VIAL.NEB. NEB SCH ×3 (08:18→19:49)
[2018-09-05 08:32] LABS: HEMATOCRIT 43.4 % (32.4-45.2); HEMOGLOBIN 12.8 GM/dL (10.7-15.3); MCH 22.1 pg (25.7-33.7); MCHC 29.5 g/dl (32.0-36.0); MEAN CELL VOLUME 74.9 fl (80-96); MEAN PLT VOLUME 8.3 fl (7.5-11.1); PLATELET COUNT 281 K/MM3 (134-434); RBC 5.79 M/mm3 (3.60-5.2); RDW 22.9 % (11.6-15.6); WHITE BLOOD COUNT 2.5 K/mm3 (4.0-10.0)
[2018-09-05] MEDS: hydrALAZINE HCL 25 MG TABLET (FP) PO SCH (09:33)
[2018-09-05] MEDS: FLUTICASONE/SALMETEROL 100 MCG/50 MCG DISKUS IH SCH ×2 (09:33→21:25)
[2018-09-05] MEDS: VERAPAMIL HCL 240 MG E.R. TABLET (FP) PO SCH ×2 (09:34→21:25)
[2018-09-05 13:59] VITALS: BMI 41.5
--- NOTE | 2018-09-05 15:42 | PN ---
Progress Note, Physician History of Present Illness: 48 year old female with a care at [facility] of COPD and is on home O2, HTN , HLD, previous CVA, recurrent admissions for heart failrue and paroxysmal Afib. Poorly compliant with diuretics. She presents to the ED with the complaint of 2 weeks of worsening lower extremity edema, abdominal distension, and progressive ANAYA. - Current Medication List Current Medications: Active Medications Albuterol/Ipratropium (Duoneb -) 1 amp NEB Q6H PRN PRN Reason: SHORTNESS OF BREATH Albuterol/Ipratropium (Duoneb -) 1 amp NEB RTID [facility] Last Admin: 09/05/18 15:25 Dose: 1 amp Furosemide (Lasix Injection -) 40 mg IVPUSH BIDLASIX [facility] Last Admin: 09/05/18 06:48 Dose: 40 mg Hydralazine HCl (Apresoline -) 25 mg PO DAILY [facility] Last Admin: 09/05/18 09:33 Dose: 25 mg Insulin Aspart (Novolog Vial Sliding Scale -) 1 vial SQ [facility]; Protocol Last Admin: 09/05/18 12:00 Dose: Not Given Rivaroxaban (Xarelto -) 20 mg PO DAILY@1800 [facility] Last Admin: 09/04/18 17:03 Dose: 20 mg Fluticasone/Salmeterol (Advair 100mcg/50mcg -) 1 puff IH BID [facility] Last Admin: 09/05/18 09:33 Dose: 1 puff Verapamil HCl (Calan Sr -) 240 mg PO BID [facility] Last Admin: 09/05/18 09:34 Dose: 240 mg - Objective Vital Signs: Vital Signs Temperature 98.1 F 09/05/18 14:00 Pulse Rate 94 H 09/05/18 14:00 Respiratory Rate 20 09/05/18 14:00 Blood Pressure 109/64 09/05/18 14:00 O2 Sat by Pulse Oximetry (%) 96 09/05/18 12:00 Constitutional: Yes: Well Nourished Eyes: Yes: Conjunctiva Clear HENT: Yes: Atraumatic Neck: Yes: Trachea Midline Cardiovascular: Yes: Regular Rate and Rhythm, JVD, S1, S2 Respiratory: Yes: Regular, Rales Gastrointestinal: Yes: Normal Bowel Sounds (distended, abdominal wall edema) Edema: Yes Labs: CBC, BMP 09/05/18 05:30 09/05/18 05:30 INR, PTT INR 1.08 (0.83-1.09) 09/02/18 19:10 Problem List - Problems (1) CHF (congestive heart failure) Code(s): I50.9 - HEART FAILURE, UNSPECIFIED Qualifiers: Heart failure type: unspecified Heart failure chronicity: acute Qualified Code(s): I50.9 - Heart failure, unspecified Assessment/Plan Acute on chronic CHF. Paroxysmal Afib and prior CVA ho COPD poor compliance with medications. CHF: Improving weight and subjective diuresis on IV therapy. Continue I diuresis. Monitor weight and UO Echocardiogram Afib: Has remained in NSR on telemetry. Cont Verapamil and Xarelto
--- NOTE | 2018-09-05 16:53 | PN ---
Progress Note (short form) - Note Progress Note: Subjective: no fever or chills. No PAIGE , no SOB. LE edema improved .heaviness in her abd and legs Objective: Vital Signs: Last Vital Signs Temp Pulse Resp BP Pulse Ox 98.1 F 94 H 20 109/64 97 09/05/18 14:00 09/05/18 14:00 09/05/18 14:00 09/05/18 14:00 09/05/18 15:00 Laboratory Results - last 24 hr 09/04/18 09/05/18 09/05/18 17:02 05:30 05:30 WBC 2.5 L RBC 5.79 H Hgb 12.8 Hct 43.4 MCV 74.9 L MCH 22.1 L MCHC 29.5 L RDW 22.9 H Plt Count 281 MPV 8.3 Sodium 138 Potassium 4.7 Chloride 96 L Carbon Dioxide 41 H Anion Gap 2 L BUN 16 Creatinine 0.8 Creat Clearance w eGFR > 60 POC Glucometer 131 Random Glucose 95 Calcium 8.0 L Phosphorus 4.5 Magnesium 2.3 Ferritin 22.1 09/05/18 09/05/18 06:47 12:13 WBC RBC Hgb Hct MCV MCH MCHC RDW Plt Count MPV Sodium Potassium Chloride Carbon Dioxide Anion Gap BUN Creatinine Creat Clearance w eGFR POC Glucometer 104 106 Random Glucose Calcium Phosphorus Magnesium Ferritin Physical Exam: NAD, awake, alert, cooperative CV: RRR, no MRG Lungs: decreased breath sounds both lung camara Ext : 2+ edema on legs, and on abd wall . erythema improved Abd: soft, obese, edema , erythema ASSESSMENT AND PLAN: 48 y/o lady with h/o DM , HTN, D CHF, COPD on 3 L of O2 at home , heroin abuse ( many years ago ) , CVA, recent admission to [facility] for CHF and non compliance who presented with SOb and worsening LE edema after stopping her home lasix . she was diagnosed with Acute diastolic heart fialure exacerbation 1- Acute on chronic diastolic CHF exacerbation: improved, weight decreased - cont lasix at 40 BID - monitor weight . - echo pending . - records from [facility] still pending - not sure why on xarelto. records for ? fib 2- HTN: -cont verapamil and hydralazin 3- h/o COPD: not in exacerbation - cont Nebs - cont home O2 4- DM : SSI . 5- LE edema , due to heart failure , no cellulitis. 6- Microcytosis: iron studies still pending 7- Morbid Obesity: will refer to Dr. Hatch for weight loss sx as outpt DVT PX: on xarelto HLOC Visit type - Emergency Visit Emergency Visit: Yes ED Registration Date: 09/02/18 Care time: The patient presented to the Emergency Department on the above date and was hospitalized for further evaluation of their emergent condition. - New Patient This patient is new to me today: No - Critical Care Critical Care patient: No
[2018-09-05] MEDS: ACETAMINOPHEN 325 MG TABLET (FP) PO PRN (17:17)
[2018-09-05] MEDS: RIVAROXABAN 20 MG TABLET PO SCH (17:19)
[2018-09-05] MEDS ORDERED: PT OWN MED DRAWER 7, Y5N ONE ×2 (21:17→22:37)
[2018-09-06] MEDS: FUROSEMIDE 40 MG/4 ML INJECTABLE VIAL IVPUSH SCH ×2 (06:00→14:34)
[2018-09-06] MEDS: INSULIN SLIDING SCALE (NOVOLOG) 1 VIAL SQ SCH ×4 (06:51→22:15)
[2018-09-06 07:12] LABS: SERUM IRON SATURATION 11 % (15-55); TOTAL IRON BINDING CAPACITY 292 ug/dL (250-450); UIBC 261 ug/dL (131-425)
[2018-09-06] MEDS: ALBUTEROL SO4 2.5/IPRATROPIUM 0.5 INH SOL 3 ML VIAL.NEB. NEB SCH ×3 (07:56→20:54)
[2018-09-06] MEDS ORDERED: VANCOMYCIN HCL 1,500 MG in DEXTROSE 5%-WATER - 500 ML IVPB ONE ×2 (08:00→22:00)
--- NOTE | 2018-09-06 08:15 | PN ---
Physical Exam: SUBJECTIVE: Patient seen and examined OBJECTIVE: Vital Signs Period Temp Pulse Resp BP Sys/Sun Pulse Ox Last 24 Hr 97.4 F-98.1 F 80-94 18-20 109-138/59-76 94-97 GENERAL: The patient is awake, alert, and fully oriented, in no acute distress. EYES: PEERLA; EOMI; no scleral ictyers. NECK:no JVD. LUNGS: CTA B/L; no rales, rhonchi or wheezing HEART: Regular rate and rhythm, S1, S2 without murmur, rub or gallop. ABDOMEN: Soft, distedned; normoactive bowel sounds, no guarding, no rebound, no hepatosplenomegaly, no masses. EXTREMITIES: 2+ pulses, warm, well-perfused, 2+edema B/L. . PSYCH: Normal mood, normal affect. SKIN: Warm, dry, normal turgor, no rashes or lesions noted Laboratory Results - last 24 hr 09/05/18 09/05/18 09/05/18 05:30 05:30 12:13 WBC 2.5 L RBC 5.79 H Hgb 12.8 Hct 43.4 MCV 74.9 L MCH 22.1 L MCHC 29.5 L RDW 22.9 H Plt Count 281 MPV 8.3 POC Glucometer 106 Iron 31 TIBC 292 Iron Saturation 11 L 09/05/18 09/05/18 09/06/18 16:45 21:22 05:59 WBC RBC Hgb Hct MCV MCH MCHC RDW Plt Count MPV POC Glucometer 114 167 101 Iron TIBC Iron Saturation Active Medications Generic Name Dose Route Start Last Admin Trade Name Freq PRN Reason Stop Dose Admin Acetaminophen 650 mg 09/05/18 16:49 09/05/18 17:17 Tylenol - PO 650 mg Q6H PRN Administration PAIN Albuterol/Ipratropium 1 amp 09/03/18 08:33 Duoneb - NEB Q6H PRN SHORTNESS OF BREATH Albuterol/Ipratropium 1 amp 09/03/18 14:00 09/06/18 07:56 Duoneb - NEB 1 amp RTID ANGIE Administration Furosemide 40 mg 09/03/18 22:00 09/06/18 06:00 Lasix Injection - IVPUSH 40 mg BIDLASIX ANGIE Administration Hydralazine HCl 25 mg 09/05/18 10:00 09/05/18 09:33 Apresoline - PO 25 mg DAILY ANGIE Administration Vancomycin HCl 1,500 mg/ 500 mls @ 250 mls/hr 09/06/18 08:00 Dextrose IVPB 09/06/18 09:59 ONCE ONE Protocol Insulin Aspart 1 vial 09/03/18 07:00 09/06/18 06:51 Novolog Vial Sliding Scale - SQ Not Given ACHS ANGIE Protocol Rivaroxaban 20 mg 09/04/18 18:00 09/05/18 17:19 Xarelto - PO 20 mg DAILY@1800 ANGIE Administration Fluticasone/Salmeterol 1 puff 09/03/18 10:00 09/05/18 21:25 Advair 100mcg/50mcg - IH 1 puff BID ANGIE Administration Verapamil HCl 240 mg 09/04/18 22:00 09/05/18 21:25 Calan Sr - PO 240 mg BID ANGIE Administration ASSESSMENT/PLAN: 48F w/ pmhx of COPD (on 3L at home), HTN, HLD, NIDDM, stroke, heroin use presented to the ED with worsening shortness of breath, b/l leg swelling and abdominal distension for 2 weeks. #Acute CHF exacerbation -weight this AM went from 119kg to 113 kg -lasix 40 IV BID -repeat echo pending -daily weights, I/O's -Cont Duonebs/Albuterol; -Influenza ordered : negative -Pt is well-known to [facility]. in process of getting records #Hx of COPD -Likely not in exacerbation, but will treat with Duonebs if needed PRN #HTN -c/w hydralazine 25 daily and verapamil 240 BID #Pulmonary HTN -Last echo per [facility] revealed pulm HTN, elevated PAP. Will obtain records in AM from [facility]. #HLD not on meds as per pharmacy #NIDDM -Holding home metformin -BGM/ISS ACHS -a1c is 6.1 #Hx of Stroke -No current neurological deficits -c/w xarelto 20 daily DVT PPX; xarelto 20 daily Problem List - Problems (1) CHF (congestive heart failure) Code(s): I50.9 - HEART FAILURE, UNSPECIFIED Qualifiers: Heart failure type: unspecified Heart failure chronicity: acute Qualified Code(s): I50.9 - Heart failure, unspecified (2) COPD (chronic obstructive pulmonary disease) Code(s): J44.9 - CHRONIC OBSTRUCTIVE PULMONARY DISEASE, UNSPECIFIED Qualifiers: COPD type: unspecified COPD Qualified Code(s): J44.9 - Chronic obstructive pulmonary disease, unspecified Visit type - Emergency Visit Emergency Visit: Yes ED Registration Date: 09/02/18 Care time: The patient presented to the Emergency Department on the above date and was hospitalized for further evaluation of their emergent condition. - New Patient This patient is new to me today: No - Critical Care Critical Care patient: No
[2018-09-06] MEDS: FLUTICASONE/SALMETEROL 100 MCG/50 MCG DISKUS IH SCH ×2 (09:59→22:15)
[2018-09-06] MEDS: hydrALAZINE HCL 25 MG TABLET (FP) PO SCH (10:00)
[2018-09-06] MEDS: VERAPAMIL HCL 240 MG E.R. TABLET (FP) PO SCH ×2 (10:00→22:15)
--- NOTE | 2018-09-06 15:40 | ECHO ---
Name: MELLO IRAHETA Exam:Adult Echocardiogram Study Date: 09/06/2018 01:58 PM Age: 48 yrs Reason For Study: chf Height: 65 in Weight: 251 lb BSA: 2.2 m2 MMode/2D Measurements & Calculations IVSd: 1.4 cm Ao root diam: 3.7 cm LVIDd: 4.6 cm LA dimension: 5.2 cm LVIDs: 2.6 cm ACS: 1.6 cm LVPWd: 1.3 cm IVSs: 1.3 cm LVPWs: 1.8 cm EDV(Teich): 95.7 ml ESV(Teich): 25.4 ml LVOT diam: 2.1 cm Doppler Measurements & Calculations MV E max jonathan: 81.9 cm/sec Ao V2 max: 174.9 cm/sec MV A max jonathan: 44.4 cm/sec Ao max P.3 mmHg MV E/A: 1.8 Ao V2 mean: 133.2 cm/sec Ao mean P.8 mmHg Ao V2 VTI: 31.3 cm BETO(I,D): 2.6 cm2 BETO(V,D): 2.5 cm2 LV V1 max P.7 mmHg SV(LVOT): 81.9 ml LV V1 mean P.7 mmHg LV V1 max: 119.3 cm/sec LV V1 mean: 91.2 cm/sec LV V1 VTI: 22.8 cm TR max jonathan: 264.0 cm/sec Med Peak E' Jonathan: 7.8 cm/sec TR max P.0 mmHg Med E/e': 10.5 Lat Peak E' Jonathan: 11.9 cm/sec Lat E/e': 6.9 Procedure A complete two-dimensional transthoracic echocardiogram was performed (2D, M-mode, Doppler and color flow Doppler). Technically limited study. Left Ventricle The left ventricle is normal in size. There is mild concentric left ventricular hypertrophy. Left vince tricular systolic function is normal. Ejection Fraction = 60-65%. No regional wall motion abnormalities noted. Right Ventricle The right ventricle is moderately dilated. The right ventricular systolic function is moderately redu emory. Atria The left atrium is moderately dilated. The right atrium is severely dilated. Mitral Valve There is mild mitral annular calcification. There is mild mitral regurgitation. Tricuspid Valve The tricuspid valve is normal in structure and function. There is moderate tricuspid regurgitation. P ulmonary artery systolic pressure is at least 36 mmHg if RA pressure is assumed 3 mmHg. Aortic Valve The aortic valve is normal in structure and function. No aortic regurgitation is present. Pulmonic Valve The pulmonic valve is not well visualized. Great Vessels The aortic root is normal size. Pericardium/Pleura There is no pericardial effusion. Interpretation Summary Technically limited study The left ventricle is normal in size. There is mild concentric left ventricular hypertrophy. Left ventricular systolic function is normal. No regional wall motion abnormalities noted. Ejection Fraction = 60-65%. The right ventricle is moderately dilated. The right ventricular systolic function is moderately reduced. The left atrium is moderately dilated. The right atrium is severely dilated. There is mild mitral annular calcification. There is mild mitral regurgitation. There is moderate tricuspid regurgitation. Pulmonary artery systolic pressure is at least 36 mmHg if RA pressure is assumed 3 mmHg There is no pericardial effusion. Previous study is not available for comparison John Lloyd MD 09/06/2018 03:39 PM
--- NOTE | 2018-09-06 16:32 | PN ---
Teaching Attending Note Name of Resident: Oilva García ATTENDING PHYSICIAN STATEMENT I saw and evaluated the patient. I reviewed the resident's note and discussed the case with the resident. I agree with the resident's findings and plan as documented. SUBJECTIVE: no fever or chills . No PAIGE , no SOB OBJECTIVE: NAD, awake, alert, cooperative CV: RRR, no MRG Lungs: decreased breath sounds both lung camara Ext : 1+ edema on legs, and on abd wall . erythema improved ASSESSMENT AND PLAN: 48 y/o lady with h/o DM , HTN, D CHF, COPD on 3 L of O2 at home , heroin abuse ( many years ago ) , CVA, recent admission to [facility] for CHF and non compliance who presented with SOb and worsening LE edema after stopping her home lasix . she was diagnosed with Acute diastolic heart fialure exacerbation 1- Acute on chronic systolic and diastolic CHF exacerbation: improved, weight decreased - cont lasix at 40 BID - monitor weight . - echo reviewed - records from [facility] still pending - not sure why on xarelto. records for ? fib 2- HTN: -cont verapamil and hydralazin 3- h/o COPD: not in exacerbation - cont Nebs - cont home O2 4- DM: SSI . 5- LE edema , due to heart failure , no cellulitis. + blood cx in 1 set is likely contamination with staph epidermidies . gave one dose of vanco and will gibe another this evening and wait for further Id - repeat blood cx 6- Microcytosis: iron studies don't indicate iron def 7- Morbid Obesity: will refer to Dr. Hatch for weight loss sx as outpt DVT PX: on xarelto HLOC
[2018-09-06] MEDS: RIVAROXABAN 20 MG TABLET PO SCH (17:12)
--- NOTE | 2018-09-06 18:46 | PN ---
Progress Note, Physician Chief Complaint: Patient appears comfortable with improved SOB. She has no chest pain or recurrent palpitation. Tele shows sinus rhythm with mild tachycardia (100 BPM), single VPCs and ventricular couplets. History of Present Illness: 48 year old woman with a PMHx of COPD and is on home O2, HTN, HLD, previous CVA , recurrent admissions for heart failrue and paroxysmal Afib. Poorly compliant with diuretics admitted with 2 weeks of worsening lower extremity edema, abdominal distension, and progressive ANAYA. Her symptoms improved with IV diuretics. Echo 09/06/2018: Mild concentric LVH with normal wall motion and systolic function. LVEF = 60-65%. Moderate RA dilatation and hypokinesis. Moderate LA and severe RA dilatation. Mild MR. Moderate TR. PASP = 36 mmHg with estimated RAP = 3 mmHg (Dr. Lloyd). - Current Medication List Current Medications: Active Medications Acetaminophen (Tylenol -) 650 mg PO Q6H PRN PRN Reason: PAIN Last Admin: 09/05/18 17:17 Dose: 650 mg Albuterol/Ipratropium (Duoneb -) 1 amp NEB Q6H PRN PRN Reason: SHORTNESS OF BREATH Albuterol/Ipratropium (Duoneb -) 1 amp NEB RTID [facility] Last Admin: 09/06/18 13:13 Dose: 1 amp Furosemide (Lasix Injection -) 40 mg IVPUSH BIDLASIX [facility] Last Admin: 09/06/18 14:34 Dose: 40 mg Hydralazine HCl (Apresoline -) 25 mg PO DAILY [facility] Last Admin: 09/06/18 10:00 Dose: 25 mg Vancomycin HCl 1,500 mg/ (Dextrose) 500 mls @ 250 mls/hr IVPB ONCE ONE; Protocol Stop: 09/06/18 23:59 Insulin Aspart (Novolog Vial Sliding Scale -) 1 vial SQ [facility]; Protocol Last Admin: 09/06/18 17:50 Dose: Not Given Rivaroxaban (Xarelto -) 20 mg PO DAILY@1800 [facility] Last Admin: 09/06/18 17:12 Dose: 20 mg Fluticasone/Salmeterol (Advair 100mcg/50mcg -) 1 puff IH BID [facility] Last Admin: 09/06/18 09:59 Dose: 1 puff Verapamil HCl (Calan Sr -) 240 mg PO BID [facility] Last Admin: 09/06/18 10:00 Dose: 240 mg - Objective Vital Signs: Vital Signs Temperature 98.4 F 09/06/18 14:10 Pulse Rate 83 09/06/18 14:10 Respiratory Rate 20 09/06/18 14:10 Blood Pressure 127/63 09/06/18 14:10 O2 Sat by Pulse Oximetry (%) 95 09/06/18 10:00 General: Well developed. Obese. No acute distress. Head: Normocephalic. Atraumatic, Eyes: PERRLA, EOMI. Sclerae anicteric. Conjunctivae clear. Neck: Supple. (=) JVD. No bruits. Heart: Normal S1, S2: Regular rhythm and rate. No murmur. No gallop or rub. Lungs: Symmetrical air entry. Clear to auscultation. No crackle. No wheezing or rhonchi. Abdomen: Soft. Bowel sound positive. Non tender. No masses. Extremities: 1+ edema. No clubbing or cyanosis. PD 2+, equal bilaterally. Neuro: Intact, no focal findings. AAO X3. Labs: CBC, BMP 09/05/18 05:30 09/05/18 05:30 INR, PTT INR 1.08 (0.83-1.09) 09/02/18 19:10 Assessment/Plan 48 year old woman with a PMHx of COPD and is on home O2, HTN, HLD, previous CVA , recurrent admissions for heart failrue and paroxysmal Afib. Poorly compliant with diuretics admitted with 2 weeks of worsening lower extremity edema, abdominal distension, and progressive ANAYA. Her symptoms improved with IV diuretics. Echo 09/06/2018: Mild concentric LVH with normal wall motion and systolic function. LVEF = 60-65%. Moderate RA dilatation and hypokinesis. Moderate LA and severe RA dilatation. Mild MR. Moderate TR. PASP = 36 mmHg with estimated RAP = 3 mmHg (Dr. Lloyd). 1) Acute on chronic diastolic CHF with right heart failure and at least moderate pulmonary hypertension, likely seconary to severe Continue IV Lasix 40 mg BID to keep Os >Is. Monitor daily weight, renal function and lytes. 3) Paroxysmal Afib and prior CVA: Currently in sinus with mild tachycardia and VPCs while on Verapamil 240 mg BID. Would add metoprolol tartrate 25 mg BID. Continue Verapamil and Xarelto
[2018-09-06] MEDS: ACETAMINOPHEN 325 MG TABLET (FP) PO PRN (20:41)
[2018-09-06] MEDS ORDERED: PT OWN MED DRAWER 7, Y5N ONE (21:30)
[2018-09-07] MEDS: INSULIN SLIDING SCALE (NOVOLOG) 1 VIAL SQ SCH ×4 (06:54→21:49)
[2018-09-07] MEDS: FUROSEMIDE 40 MG/4 ML INJECTABLE VIAL IVPUSH SCH ×2 (06:54→15:28)
[2018-09-07 07:52] LABS: HEMATOCRIT 42.4 % (32.4-45.2); HEMOGLOBIN 12.6 GM/dL (10.7-15.3); MCH 21.8 pg (25.7-33.7); MCHC 29.6 g/dl (32.0-36.0); MEAN CELL VOLUME 73.8 fl (80-96); MEAN PLT VOLUME 8.4 fl (7.5-11.1); PLATELET COUNT 282 K/MM3 (134-434); RBC 5.75 M/mm3 (3.60-5.2); RDW 23.2 % (11.6-15.6)
[2018-09-07] MEDS: ALBUTEROL SO4 2.5/IPRATROPIUM 0.5 INH SOL 3 ML VIAL.NEB. NEB SCH ×3 (07:52→19:31)
[2018-09-07 08:21] LABS: ANION GAP 4 MMOL/L (8-16); BLOOD UREA NITROGEN 15 mg/dL (7-18); CALCIUM 8.2 mg/dL (8.5-10.1); CHLORIDE 98 mmol/L (98-107); CO2 38 mmol/L (21-32); CREATININE 0.8 mg/dL (0.55-1.3); GLUCOSE,RANDOM 93 mg/dL (74-106); MAGNESIUM 2.2 mg/dL (1.8-2.4); PHOSPHOROUS 4.5 mg/dL (2.5-4.9); POTASSIUM 4.7 mmol/L (3.5-5.1); SODIUM 140 mmol/L (136-145)
[2018-09-07] MEDS: VERAPAMIL HCL 240 MG E.R. TABLET (FP) PO SCH (10:12)
[2018-09-07] MEDS: FLUTICASONE/SALMETEROL 100 MCG/50 MCG DISKUS IH SCH ×2 (10:12→21:48)
[2018-09-07] MEDS: hydrALAZINE HCL 25 MG TABLET (FP) PO SCH (10:12)
--- NOTE | 2018-09-07 11:24 | PN ---
Progress Note, Physician History of Present Illness: seen and examined today in nad. feeling better. abd distention and LE edema improving. - Current Medication List Current Medications: Active Medications Acetaminophen (Tylenol -) 650 mg PO Q6H PRN PRN Reason: PAIN Last Admin: 09/06/18 20:41 Dose: 650 mg Albuterol/Ipratropium (Duoneb -) 1 amp NEB Q6H PRN PRN Reason: SHORTNESS OF BREATH Albuterol/Ipratropium (Duoneb -) 1 amp NEB RTID [facility] Last Admin: 09/07/18 07:52 Dose: 1 amp Furosemide (Lasix Injection -) 40 mg IVPUSH BIDLASIX [facility] Last Admin: 09/07/18 06:54 Dose: 40 mg Hydralazine HCl (Apresoline -) 25 mg PO DAILY [facility] Last Admin: 09/07/18 10:12 Dose: 25 mg Insulin Aspart (Novolog Vial Sliding Scale -) 1 vial SQ [facility]; Protocol Last Admin: 09/07/18 06:54 Dose: Not Given Rivaroxaban (Xarelto -) 20 mg PO DAILY@1800 [facility] Last Admin: 09/06/18 17:12 Dose: 20 mg Fluticasone/Salmeterol (Advair 100mcg/50mcg -) 1 puff IH BID [facility] Last Admin: 09/07/18 10:12 Dose: 1 puff Verapamil HCl (Calan Sr -) 240 mg PO BID [facility] Last Admin: 09/07/18 10:12 Dose: 240 mg - Objective Vital Signs: Vital Signs Temperature 97.5 F L 09/07/18 05:55 Pulse Rate 92 H 09/07/18 05:55 Respiratory Rate 18 09/07/18 05:55 Blood Pressure 113/70 09/07/18 05:55 O2 Sat by Pulse Oximetry (%) 95 09/06/18 21:00 Constitutional: Yes: No Distress, Calm Eyes: Yes: Conjunctiva Clear, EOM Intact HENT: Yes: Atraumatic, Normocephalic Neck: Yes: Supple, Trachea Midline Cardiovascular: Yes: Regular Rate and Rhythm, S1, S2. No: Bradycardia, Tachycardia, Pulse Irregular, Bruit, JVD, Gallop, Murmur, Rub, S3, S4, Varicosities Respiratory: Yes: Regular, On Nasal O2. No: Rales, Rhonchi, SOB, Wheezes Gastrointestinal: Yes: Normal Bowel Sounds, Soft Edema: Yes Edema: LLE: Trace, RLE: Trace Peripheral Pulses WNL: Yes Neurological: Yes: Alert, Oriented Psychiatric: Yes: Alert, Oriented Labs: CBC, BMP 09/07/18 05:50 09/07/18 05:50 INR, PTT INR 1.08 (0.83-1.09) 09/02/18 19:10 - ....Imaging Chest X-ray: Report Reviewed, Image Reviewed EKG: Report Reviewed, Image Reviewed Other: Report Reviewed, Image Reviewed Assessment/Plan 48 year old woman with a PMHx of COPD and is on home O2, HTN, HLD, previous CVA , recurrent admissions for heart failrue and paroxysmal Afib. Poorly compliant with diuretics admitted with 2 weeks of worsening lower extremity edema, abdominal distension, and progressive ANAYA. Her symptoms improved with IV diuretics. Echo 09/06/2018: Mild concentric LVH with normal wall motion and systolic function. LVEF = 60-65%. Moderate RA dilatation and hypokinesis. Moderate LA and severe RA dilatation. Mild MR. Moderate TR. PASP = 36 mmHg with estimated RAP = 3 mmHg (Dr. Lloyd). 1) Acute on chronic diastolic CHF with right heart failure and at least moderate pulmonary hypertension, likely secondary to COPD on home O2 -Volume status improving -Continue IV Lasix 40 mg BID to keep Os >Is. -Monitor daily weight, renal function and lytes. 3) Paroxysmal Afib and prior CVA: Currently in sinus with mild tachycardia and PVCs while on Verapamil 240 mg BID. Continue Verapamil and Xarelto Can add metoprolol tartrate 25 mg BID if BP tolerates for HR control and PVC suppression
--- NOTE | 2018-09-07 13:18 | PN ---
Physical Exam: SUBJECTIVE: Patient seen and examined at bedside- no acute events overnight; patient states that she is feeling better and her breathing is improved and she is feeling better; denies CP/SOB/N/V OBJECTIVE: Vital Signs Period Temp Pulse Resp BP Sys/Sun Pulse Ox Last 24 Hr 97.3 F-98.6 F 72-92 18-20 105-133/50-81 95-95 GENERAL: The patient is awake, alert, and fully oriented, in no acute distress. EYES: PEERLA; EOMI; no scleral icterus s. NECK: no JVD; no lymphadenopathy LUNGS:CTA B/L; no rales, rhonchi or wheezing HEART: Regular rate and rhythm, S1, S2 without murmur, rub or gallop. ABDOMEN: Soft, nobeses; distended +BS ; nontender upon palpation EXTREMITIES: 2+ pulses, warm, well-perfused, 1-2+ edema B/L.. PSYCH: Normal mood, normal affect. SKIN: Warm, dry, normal turgor, no rashes or lesions noted Laboratory Results - last 24 hr 09/06/18 09/06/18 09/07/18 17:47 21:12 05:50 WBC 3.0 L RBC 5.75 H Hgb 12.6 Hct 42.4 MCV 73.8 L MCH 21.8 L MCHC 29.6 L RDW 23.2 H Plt Count 282 MPV 8.4 Sodium Potassium Chloride Carbon Dioxide Anion Gap BUN Creatinine Creat Clearance w eGFR POC Glucometer 88 176 Random Glucose Calcium Phosphorus Magnesium 09/07/18 09/07/18 05:50 06:53 WBC RBC Hgb Hct MCV MCH MCHC RDW Plt Count MPV Sodium 140 Potassium 4.7 Chloride 98 Carbon Dioxide 38 H Anion Gap 4 L BUN 15 Creatinine 0.8 Creat Clearance w eGFR > 60 POC Glucometer 98 Random Glucose 93 Calcium 8.2 L Phosphorus 4.5 Magnesium 2.2 Active Medications Generic Name Dose Route Start Last Admin Trade Name Freq PRN Reason Stop Dose Admin Acetaminophen 650 mg 09/05/18 16:49 09/06/18 20:41 Tylenol - PO 650 mg Q6H PRN Administration PAIN Albuterol/Ipratropium 1 amp 09/03/18 08:33 Duoneb - NEB Q6H PRN SHORTNESS OF BREATH Albuterol/Ipratropium 1 amp 09/03/18 14:00 09/07/18 13:11 Duoneb - NEB 1 amp RTID ANGIE Administration Furosemide 40 mg 09/03/18 22:00 09/07/18 06:54 Lasix Injection - IVPUSH 40 mg BIDLASIX ANGIE Administration Hydralazine HCl 25 mg 09/05/18 10:00 09/07/18 10:12 Apresoline - PO 25 mg DAILY ANGIE Administration Insulin Aspart 1 vial 09/03/18 07:00 09/07/18 11:56 Novolog Vial Sliding Scale - SQ Not Given ACHS [facility] Protocol Metoprolol Tartrate 25 mg 09/07/18 22:00 Lopressor - PO BID ANGIE Rivaroxaban 20 mg 09/04/18 18:00 09/06/18 17:12 Xarelto - PO 20 mg DAILY@1800 ANGIE Administration Fluticasone/Salmeterol 1 puff 09/03/18 10:00 09/07/18 10:12 Advair 100mcg/50mcg - IH 1 puff BID ANGIE Administration Verapamil HCl 240 mg 09/08/18 10:00 Calan Sr - PO DAILY [facility] ASSESSMENT/PLAN: 48F w/ pmhx of COPD (on 3L at home), HTN, HLD, NIDDM, stroke, heroin use presented to the ED with worsening shortness of breath, b/l leg swelling and abdominal distension for 2 weeks. #Acute CHF exacerbation -weight this AM went from 119kg to 111 kg -lasix 40 IV BID -repeat echo done: results noted -daily weights, I/O's -Cont Duonebs/Albuterol; -Influenza ordered : negative -Pt is well-known to [facility] in process of getting records #postitive blood cx -growing coag negative staph -awaiting ID and sensitivity -receied 2 doses of vanc thus far #Hx of COPD -Likely not in exacerbation, but will treat with Duonebs if needed PRN #HTN -c/w hydralazine 25 daily -adding metoprolol tartrate 25 BID -verapamil 240 daily from BID #Pulmonary HTN -Last echo per [facility] revealed pulm HTN, elevated PAP. Will obtain records in AM from [facility]. -seen on echo done from 09/06 #HLD not on meds as per pharmacy #NIDDM -Holding home metformin -BGM/ISS ACHS -a1c is 6.1 #Hx of Stroke -No current neurological deficits -c/w xarelto 20 daily DVT PPX; xarelto 20 daily Problem List - Problems (1) CHF (congestive heart failure) Code(s): I50.9 - HEART FAILURE, UNSPECIFIED Qualifiers: Heart failure type: unspecified Heart failure chronicity: acute Qualified Code(s): I50.9 - Heart failure, unspecified (2) COPD (chronic obstructive pulmonary disease) Code(s): J44.9 - CHRONIC OBSTRUCTIVE PULMONARY DISEASE, UNSPECIFIED Qualifiers: COPD type: unspecified COPD Qualified Code(s): J44.9 - Chronic obstructive pulmonary disease, unspecified Visit type - Emergency Visit Emergency Visit: Yes ED Registration Date: 09/02/18 Care time: The patient presented to the Emergency Department on the above date and was hospitalized for further evaluation of their emergent condition. - New Patient This patient is new to me today: No - Critical Care Critical Care patient: No
--- NOTE | 2018-09-07 18:36 | PN ---
Teaching Attending Note Name of Resident: Oliva García ATTENDING PHYSICIAN STATEMENT I saw and evaluated the patient. I reviewed the resident's note and discussed the case with the resident. I agree with the resident's findings and plan as documented. SUBJECTIVE: No fever or chills . no mendez , nO OSB. Legs, abd, and breathing improved OBJECTIVE: NAD, awake, alert, cooperative CV: RRR, no MRG Lungs: decreased breath sounds both lung camara , but improved air entery today Ext : 1+ edema on legs, and on abd wall . erythema improved ASSESSMENT AND PLAN: 48 y/o lady with h/o DM , HTN, D CHF, COPD on 3 L of O2 at home , heroin abuse ( many years ago ) , CVA, recent admission to [facility] for CHF and non compliance who presented with SOb and worsening LE edema after stopping her home lasix . she was diagnosed with Acute diastolic heart fialure exacerbation 1- Acute on chronic systolic and diastolic CHF exacerbation: improved - cont lasix at 40 BID - monitor weight . - request for records was resent again - not sure why on xarelto. records for ? fib 2- HTN: -cont verapamil ( decrease to once daily) and hydralazin 3- h/o COPD: not in exacerbation - cont Nebs - cont home O2 4- DM: SSI . 5- LE edema , due to heart failure , no cellulitis. + blood cx in 1 set with coag neg staff . repeat cx with no growth so far. - no need for Abx 6- Microcytosis: iron studies don't indicate iron def 7- Morbid Obesity: will refer to Dr. Hatch for weight loss sx as outpt DVT PX: on xarelto HLOC
[2018-09-07] MEDS: RIVAROXABAN 20 MG TABLET PO SCH (18:37)
[2018-09-07] MEDS: METOPROLOL TARTRATE 25 MG TABLET (FP) PO SCH (21:48)
[2018-09-08] MEDS: FUROSEMIDE 40 MG/4 ML INJECTABLE VIAL IVPUSH SCH ×2 (06:43→15:22)
[2018-09-08] MEDS: INSULIN SLIDING SCALE (NOVOLOG) 1 VIAL SQ SCH ×2 (06:43→11:19)
[2018-09-08 07:19] LABS: HEMATOCRIT 44.8 % (32.4-45.2); HEMOGLOBIN 13.5 GM/dL (10.7-15.3); MCH 22.4 pg (25.7-33.7); MCHC 30.1 g/dl (32.0-36.0); MEAN CELL VOLUME 74.3 fl (80-96); MEAN PLT VOLUME 8.4 fl (7.5-11.1); PLATELET COUNT 265 K/MM3 (134-434); RBC 6.03 M/mm3 (3.60-5.2); RDW 23.1 % (11.6-15.6)
[2018-09-08 07:39] LABS: ANION GAP 2 MMOL/L (8-16); BLOOD UREA NITROGEN 16 mg/dL (7-18); CALCIUM 8.4 mg/dL (8.5-10.1); CHLORIDE 99 mmol/L (98-107); CO2 38 mmol/L (21-32); CREATININE 0.8 mg/dL (0.55-1.3); GLUCOSE,RANDOM 90 mg/dL (74-106); MAGNESIUM 2.5 mg/dL (1.8-2.4); PHOSPHOROUS 5.4 mg/dL (2.5-4.9); SODIUM 139 mmol/L (136-145)
[2018-09-08] MEDS: ALBUTEROL SO4 2.5/IPRATROPIUM 0.5 INH SOL 3 ML VIAL.NEB. NEB SCH (07:48)
--- NOTE | 2018-09-08 07:50 | PN ---
Physical Exam: SUBJECTIVE: Patient seen and examined OBJECTIVE: Vital Signs Period Temp Pulse Resp BP Sys/Sun Pulse Ox Last 24 Hr 98.1 F-98.6 F 76-88 16-20 111-132/60-77 95-96 GENERAL: The patient is awake, alert, and fully oriented, in no acute distress. HEAD: Normal with no signs of trauma. EYES: PERRL, extraocular movements intact, sclera anicteric, conjunctiva clear. No ptosis. ENT: Ears normal, nares patent, oropharynx clear without exudates, moist mucous membranes. NECK: Trachea midline, full range of motion, supple. LUNGS: Breath sounds equal, clear to auscultation bilaterally, no wheezes, no crackles, no accessory muscle use. HEART: Regular rate and rhythm, S1, S2 without murmur, rub or gallop. ABDOMEN: Soft, nontender, nondistended, normoactive bowel sounds, no guarding, no rebound, no hepatosplenomegaly, no masses. EXTREMITIES: 2+ pulses, warm, well-perfused, no edema. NEUROLOGICAL: Cranial nerves II through XII grossly intact. Normal speech, gait not observed. PSYCH: Normal mood, normal affect. SKIN: Warm, dry, normal turgor, no rashes or lesions noted Laboratory Results - last 24 hr 09/07/18 09/07/18 09/07/18 05:50 05:50 20:55 WBC 3.0 L RBC 5.75 H Hgb 12.6 Hct 42.4 MCV 73.8 L MCH 21.8 L MCHC 29.6 L RDW 23.2 H Plt Count 282 MPV 8.4 Sodium 140 Potassium 4.7 Chloride 98 Carbon Dioxide 38 H Anion Gap 4 L BUN 15 Creatinine 0.8 Creat Clearance w eGFR > 60 POC Glucometer 172 Random Glucose 93 Calcium 8.2 L Phosphorus 4.5 Magnesium 2.2 09/08/18 09/08/18 05:50 06:21 WBC RBC Hgb Hct MCV MCH MCHC RDW Plt Count MPV Sodium 139 Potassium 5.0 Chloride 99 Carbon Dioxide 38 H Anion Gap 2 L BUN 16 Creatinine 0.8 Creat Clearance w eGFR > 60 POC Glucometer 109 Random Glucose 90 Calcium 8.4 L Phosphorus 5.4 H Magnesium 2.5 H Active Medications Generic Name Dose Route Start Last Admin Trade Name Freq PRN Reason Stop Dose Admin Acetaminophen 650 mg 09/05/18 16:49 09/06/18 20:41 Tylenol - PO 650 mg Q6H PRN Administration PAIN Albuterol/Ipratropium 1 amp 09/03/18 08:33 Duoneb - NEB Q6H PRN SHORTNESS OF BREATH Albuterol/Ipratropium 1 amp 09/03/18 14:00 09/08/18 07:48 Duoneb - NEB 1 amp RTID ANGIE Administration Furosemide 40 mg 09/03/18 22:00 09/08/18 06:43 Lasix Injection - IVPUSH 40 mg BIDLASIX ANGIE Administration Hydralazine HCl 25 mg 09/05/18 10:00 09/07/18 10:12 Apresoline - PO 25 mg DAILY ANGIE Administration Insulin Aspart 1 vial 09/03/18 07:00 09/08/18 06:43 Novolog Vial Sliding Scale - SQ Not Given ACHS ANGIE Protocol Metoprolol Tartrate 25 mg 09/07/18 22:00 09/07/18 21:48 Lopressor - PO 25 mg BID ANGIE Administration Rivaroxaban 20 mg 09/04/18 18:00 09/07/18 18:37 Xarelto - PO 20 mg DAILY@1800 ANGIE Administration Fluticasone/Salmeterol 1 puff 09/03/18 10:00 09/07/18 21:48 Advair 100mcg/50mcg - IH 1 puff BID ANGIE Administration Verapamil HCl 240 mg 09/08/18 10:00 Calan Sr - PO DAILY ANGIE ASSESSMENT/PLAN: 8F w/ pmhx of COPD (on 3L at home), HTN, HLD, NIDDM, stroke, heroin use presented to the ED with worsening shortness of breath, b/l leg swelling and abdominal distension for 2 weeks. #Acute CHF exacerbation -weight this AM went from 119kg to 111 kg -lasix 40 IV BID -repeat echo done: results noted -daily weights, I/O's -Cont Duonebs/Albuterol; -Influenza ordered : negative -Pt is well-known to [facility] in process of getting records #postitive blood cx -growing coag negative staph -awaiting ID and sensitivity -receied 2 doses of vanc thus far #Hx of COPD -Likely not in exacerbation, but will treat with Duonebs if needed PRN #HTN -c/w hydralazine 25 daily -adding metoprolol tartrate 25 BID -verapamil 240 daily from BID #Pulmonary HTN -Last echo per [facility] revealed pulm HTN, elevated PAP. Will obtain records in AM from [facility]. -seen on echo done from 09/06 #HLD not on meds as per pharmacy #NIDDM -Holding home metformin -BGM/ISS ACHS -a1c is 6.1 #Hx of Stroke -No current neurological deficits -c/w xarelto 20 daily DVT PPX; xarelto 20 daily Problem List - Problems (1) CHF (congestive heart failure) Code(s): I50.9 - HEART FAILURE, UNSPECIFIED Qualifiers: Heart failure type: unspecified Heart failure chronicity: acute Qualified Code(s): I50.9 - Heart failure, unspecified (2) COPD (chronic obstructive pulmonary disease) Code(s): J44.9 - CHRONIC OBSTRUCTIVE PULMONARY DISEASE, UNSPECIFIED Qualifiers: COPD type: unspecified COPD Qualified Code(s): J44.9 - Chronic obstructive pulmonary disease, unspecified
--- NOTE | 2018-09-08 09:02 | PN ---
Teaching Attending Note Name of Resident: Oliva García ATTENDING PHYSICIAN STATEMENT I saw and evaluated the patient. I reviewed the resident's note and discussed the case with the resident. I agree with the resident's findings and plan as documented. SUBJECTIVE: OBJECTIVE: Vital Signs Temperature 98.1 F 09/08/18 06:00 Pulse Rate 76 09/08/18 06:00 Respiratory Rate 20 09/08/18 06:00 Blood Pressure 120/70 09/08/18 06:00 O2 Sat by Pulse Oximetry (%) 96 09/07/18 21:00 Initial Vital Signs Temp Pulse Resp BP Pulse Ox 98.2 F 106 H 20 106/82 71 L 09/02/18 17:12 09/02/18 17:12 09/02/18 17:12 09/02/18 17:12 09/02/18 17:12 GENERAL: The patient is awake, alert, and fully oriented, in no acute distress. HEAD: Normal with no signs of trauma. EYES: PERRL, extraocular movements intact, sclera anicteric, conjunctiva clear. No ptosis. ENT: Ears normal, nares patent, oropharynx clear without exudates, moist mucous membranes. NECK: Trachea midline, full range of motion, supple. LUNGS: Breath sounds equal, clear to auscultation bilaterally, no wheezes, no crackles, no accessory muscle use. HEART: Regular rate and rhythm, S1, S2 without murmur, rub or gallop. ABDOMEN: Soft, nontender, nondistended, normoactive bowel sounds, no guarding, no rebound, no hepatosplenomegaly, no masses. EXTREMITIES: 2+ pulses, warm, well-perfused, no edema. NEUROLOGICAL: Cranial nerves II through XII grossly intact. Normal speech, gait not observed. PSYCH: Normal mood, normal affect. SKIN: Warm, dry, normal turgor, no rashes or lesions noted CBCD WBC 3.0 K/mm3 (4.0-10.0) L 09/08/18 05:50 RBC 6.03 M/mm3 (3.60-5.2) H 09/08/18 05:50 Hgb 13.5 GM/dL (10.7-15.3) 09/08/18 05:50 Hct 44.8 % (32.4-45.2) 09/08/18 05:50 MCV 74.3 fl (80-96) L 09/08/18 05:50 MCHC 30.1 g/dl (32.0-36.0) L 09/08/18 05:50 RDW 23.1 % (11.6-15.6) H 09/08/18 05:50 Plt Count 265 K/MM3 (134-434) 09/08/18 05:50 MPV 8.4 fl (7.5-11.1) 09/08/18 05:50 CMP Sodium 139 mmol/L (136-145) 09/08/18 05:50 Potassium 5.0 mmol/L (3.5-5.1) 09/08/18 05:50 Chloride 99 mmol/L (98-107) 09/08/18 05:50 Carbon Dioxide 38 mmol/L (21-32) H 09/08/18 05:50 Anion Gap 2 MMOL/L (8-16) L 09/08/18 05:50 BUN 16 mg/dL (7-18) 09/08/18 05:50 Creatinine 0.8 mg/dL (0.55-1.3) 09/08/18 05:50 Creat Clearance w eGFR > 60 (>60) 09/08/18 05:50 Random Glucose 90 mg/dL (74-106) 09/08/18 05:50 Calcium 8.4 mg/dL (8.5-10.1) L 09/08/18 05:50 Total Bilirubin 0.5 mg/dL (0.2-1) 09/03/18 05:30 AST 17 U/L (15-37) 09/03/18 05:30 ALT 19 U/L (13-61) 09/03/18 05:30 Alkaline Phosphatase 161 U/L (45-117) H 09/03/18 05:30 Total Protein 6.5 g/dl (6.4-8.2) 09/03/18 05:30 Albumin 2.7 g/dl (3.4-5.0) L 09/03/18 05:30 CARDIAC ENZYMES Troponin I 0.02 ng/ml (0.00-0.05) 09/03/18 05:30 Current Medications Generic Name Dose Route Start Last Admin Trade Name Freq PRN Reason Stop Dose Admin Acetaminophen 650 mg 09/05/18 16:49 09/06/18 20:41 Tylenol - PO 650 mg Q6H PRN Administration PAIN Albuterol/Ipratropium 1 amp 09/03/18 08:33 Duoneb - NEB Q6H PRN SHORTNESS OF BREATH Furosemide 40 mg 09/03/18 22:00 09/08/18 06:43 Lasix Injection - IVPUSH 40 mg BIDLASIX ANGIE Administration Hydralazine HCl 25 mg 09/05/18 10:00 09/07/18 10:12 Apresoline - PO 25 mg DAILY ANGIE Administration Insulin Aspart 1 vial 09/03/18 07:00 09/08/18 06:43 Novolog Vial Sliding Scale - SQ Not Given ACHS [facility] Protocol Metoprolol Tartrate 25 mg 09/07/18 22:00 09/07/18 21:48 Lopressor - PO 25 mg BID ANGIE Administration Rivaroxaban 20 mg 09/04/18 18:00 09/07/18 18:37 Xarelto - PO 20 mg DAILY@1800 ANGIE Administration Fluticasone/Salmeterol 1 puff 09/03/18 10:00 09/07/18 21:48 Advair 100mcg/50mcg - IH 1 puff BID ANGIE Administration Verapamil HCl 240 mg 09/08/18 10:00 Calan Sr - PO DAILY [facility] Home Medications Medication Instructions Recorded Albuterol Sulfate Inhaler - 1 - 2 inh PO QID 09/03/18 [Ventolin HFA Inhaler -] Budesonide/Formeterol Fumarate 2 inh PO BID 09/03/18 [SYMBICORT 160/4.5mcg -] Folic Acid 1 mg PO DAILY 09/03/18 Furosemide 40 mg PO BID 09/03/18 Gabapentin [Neurontin -] 100 mg PO Q8H 09/03/18 Metformin HCl [Glucophage] 500 mg PO BID 09/03/18 Metoprolol Tartrate [Lopressor -] 25 mg PO BID #60 tablet 09/08/18 Verapamil HCl ER [Calan Sr -] 240 mg PO DAILY 30 Days #30 09/08/18 tablet.er hydrALAZINE HCL [Apresoline -] 25 mg PO DAILY #30 tablet 09/08/18 ASSESSMENT AND PLAN: 48 y/o lady with h/o DM , HTN, D CHF, COPD on 3 L of O2 at home , heroin abuse ( many years ago ) , CVA, recent admission to [facility] for CHF and non compliance who presented with SOb and worsening LE edema after stopping her home lasix . she was diagnosed with Acute diastolic heart fialure exacerbation 1- Acute on chronic systolic and diastolic CHF exacerbation: improved - cont lasix at 40 BID - monitor weight . - request for records was resent again - not sure why on xarelto. records for ? fib 2- HTN: -cont verapamil ( decrease to once daily) and hydralazin 3- h/o COPD: not in exacerbation - cont Nebs - cont home O2 4- DM: SSI . 5- LE edema , due to heart failure , no cellulitis. + blood cx in 1 set with coag neg staff . repeat cx with no growth so far. - no need for Abx 6- Microcytosis: iron studies don't indicate iron def 7- Morbid Obesity: will refer to Dr. Hatch for weight loss sx as outpt DVT PX: on xarelto
[2018-09-08] MEDS ORDERED: VERAPAMIL HCL 240 MG E.R. TABLET (FP) PO SCH (10:00)
[2018-09-08] MEDS: FLUTICASONE/SALMETEROL 100 MCG/50 MCG DISKUS IH SCH (11:09)
[2018-09-08] MEDS: hydrALAZINE HCL 25 MG TABLET (FP) PO SCH (11:09)
[2018-09-08] MEDS: METOPROLOL TARTRATE 25 MG TABLET (FP) PO SCH (11:10)
--- NOTE | 2018-09-08 14:54 | DS ---
Physical Exam: SUBJECTIVE: Patient seen and examined at bedside- no acute events overnight; patient states her breathing is much better; she denies any CP/SOb/N/V OBJECTIVE: Vital Signs Period Temp Pulse Resp BP Sys/Sun Pulse Ox Last 24 Hr 98.1 F-98.6 F 76-86 16-20 112-132/60-77 91-96 PHYSICAL EXAM GENERAL: The patient is awake, alert, and fully oriented, in no acute distress. HEAD: Normal with no signs of trauma. EYES: PERRL, extraocular movements intact, sclera anicteric, conjunctiva clear. No ptosis. ENT: Ears normal, nares patent, oropharynx clear without exudates, moist mucous membranes. NECK: Trachea midline, full range of motion, supple. LUNGS: Breath sounds equal, clear to auscultation bilaterally, no wheezes, no crackles, no accessory muscle use. HEART: Regular rate and rhythm, S1, S2 without murmur, rub or gallop. ABDOMEN: Soft, nontender, nondistended, normoactive bowel sounds, no guarding, no rebound, no hepatosplenomegaly, no masses. EXTREMITIES: 2+ pulses, warm, well-perfused, no edema. NEUROLOGICAL: Cranial nerves II through XII grossly intact. Normal speech, gait not observed. PSYCH: Normal mood, normal affect. SKIN: Warm, dry, normal turgor, no rashes or lesions noted LABS Laboratory Results - last 24 hr 09/07/18 09/08/18 09/08/18 20:55 05:50 05:50 WBC 3.0 L RBC 6.03 H Hgb 13.5 Hct 44.8 MCV 74.3 L MCH 22.4 L MCHC 30.1 L RDW 23.1 H Plt Count 265 MPV 8.4 Sodium 139 Potassium 5.0 Chloride 99 Carbon Dioxide 38 H Anion Gap 2 L BUN 16 Creatinine 0.8 Creat Clearance w eGFR > 60 POC Glucometer 172 Random Glucose 90 Calcium 8.4 L Phosphorus 5.4 H Magnesium 2.5 H 09/08/18 09/08/18 06:21 11:18 WBC RBC Hgb Hct MCV MCH MCHC RDW Plt Count MPV Sodium Potassium Chloride Carbon Dioxide Anion Gap BUN Creatinine Creat Clearance w eGFR POC Glucometer 109 89 Random Glucose Calcium Phosphorus Magnesium HOSPITAL COURSE: Date of Admission:09/02/18 48 y/o female with PMH of COPD (on 3l of home 02) HTN, HLD, DM< stroke, former heroin use who presented to the ED with worsening abdominal distention and B/L LE edema for 2 weeks. Patient has gone to [facility] in the past for these issues ; she admits to not having taken her lasix for the past week and a half leading up to her admission. upon arrival she had an eleavted BNP of 3500 . she was started on IV lasix 40 BID and remained on that dose through the course of her 6 day hospital stay. she was seen by cardio daily; she had an echo whichshoed an ef of 55-60 percent no RWA PA pressure was 36 ( she has a known history of pulmonary HTN), some changes were made to her meds: her verapamil was decreased from BID to dialy at the same dose of 240 mg; we decreased her hydralazine to 25mg from 50 and added metoprolol tartrate 25 BID to her regimen- she was stable to be d/c and was sent home on her home lasix dose of 40 BID. Date of Discharge: 09/08/18 Minutes to complete discharge: 39 Discharge Summary Reason For Visit: RESPIRATORY FAILUREWITH HYPERCAPNIA,CONGESTIVE Condition: Improved - Instructions Diet, Activity, Other Instructions: You came to the emergency room with worsening leg swelling and abdominal distention for a few weeks likely due to an exacerbation of your congestive heart failure. We gave you IV medications which reduced the swelling and improved your breathing. We made a few changes to your medications: Please take the Verapamil 240mg once a day instead of twice a day We reduced the dose of your Hydralazine from 50 to 25mg once a day We added Metoprolol Tartrate 25mg to be taken twice a day Please resume all of your other home medications including the Furosemide 40mg twice a day Please follow up with your machine plug shaper, Dr Moe within one week *if you begin to experience any chest pains, trouble breathing, fevers please return to the emergency room immediately Referrals: Casey Moe MD [Non Staff, Medical] - 1 Week Disposition: HOME - Home Medications Comprehensive Discharge Medication List: Ambulatory Orders Albuterol Sulfate Inhaler - [Ventolin HFA Inhaler -] 1 - 2 inh PO QID 09/03/18 Budesonide/Formeterol Fumarate [SYMBICORT 160/4.5mcg -] 2 inh PO BID 09/03/18 Folic Acid 1 mg PO DAILY 09/03/18 Furosemide 40 mg PO BID 09/03/18 Gabapentin [Neurontin -] 100 mg PO Q8H 09/03/18 Metformin HCl [Glucophage] 500 mg PO BID 09/03/18 Metoprolol Tartrate [Lopressor -] 25 mg PO BID #60 tablet 09/08/18 Verapamil HCl ER [Calan Sr -] 240 mg PO DAILY 30 Days #30 tablet.er 09/08/18 hydrALAZINE HCL [Apresoline -] 25 mg PO DAILY #30 tablet 09/08/18 Problem List - Problems (1) CHF (congestive heart failure) Code(s): I50.9 - HEART FAILURE, UNSPECIFIED Qualifiers: Heart failure type: unspecified Heart failure chronicity: acute Qualified Code(s): I50.9 - Heart failure, unspecified (2) COPD (chronic obstructive pulmonary disease) Code(s): J44.9 - CHRONIC OBSTRUCTIVE PULMONARY DISEASE, UNSPECIFIED Qualifiers: COPD type: unspecified COPD Qualified Code(s): J44.9 - Chronic obstructive pulmonary disease, unspecified This patient is new to me today: No Emergency Visit: Yes ED Registration Date: 09/02/18 Care time: The patient presented to the Emergency Department on the above date and was hospitalized for further evaluation of their emergent condition. Critical Care patient: No - Discharge Referral Referred to [facility] No
--- NOTE | 2018-09-08 15:02 | PN ---
Progress Note, Physician Chief Complaint: Patient appears comfortable with improved SOB. She has no chest pain or recurrent palpitation. Tele shows sinus rhythm with reduced resting heart rate. History of Present Illness: 48 year old woman with a PMHx of COPD and is on home O2, HTN, HLD, previous CVA , recurrent admissions for heart failrue and paroxysmal Afib. Poorly compliant with diuretics admitted with 2 weeks of worsening lower extremity edema, abdominal distension, and progressive ANYAA. Her symptoms improved with IV diuretics. Echo 09/06/2018: Mild concentric LVH with normal wall motion and systolic function. LVEF = 60-65%. Moderate RA dilatation and hypokinesis. Moderate LA and severe RA dilatation. Mild MR. Moderate TR. PASP = 36 mmHg with estimated RAP = 3 mmHg (Dr. Lloyd). - Current Medication List Current Medications: Active Medications Acetaminophen (Tylenol -) 650 mg PO Q6H PRN PRN Reason: PAIN Last Admin: 09/06/18 20:41 Dose: 650 mg Albuterol/Ipratropium (Duoneb -) 1 amp NEB Q6H PRN PRN Reason: SHORTNESS OF BREATH Furosemide (Lasix Injection -) 40 mg IVPUSH BIDLASIX [facility] Last Admin: 09/08/18 06:43 Dose: 40 mg Hydralazine HCl (Apresoline -) 25 mg PO DAILY [facility] Last Admin: 09/08/18 11:09 Dose: 25 mg Insulin Aspart (Novolog Vial Sliding Scale -) [address] [facility]; Protocol Last Admin: 09/08/18 11:19 Dose: Not Given Metoprolol Tartrate (Lopressor -) 25 mg PO BID [facility] Last Admin: 09/08/18 11:10 Dose: 25 mg Rivaroxaban (Xarelto -) 20 mg PO DAILY@1800 [facility] Last Admin: 09/07/18 18:37 Dose: 20 mg Fluticasone/Salmeterol (Advair 100mcg/50mcg -) 1 puff IH BID [facility] Last Admin: 09/08/18 11:09 Dose: 1 puff Verapamil HCl (Calan Sr -) 240 mg PO DAILY [facility] Last Admin: 09/08/18 11:10 Dose: 240 mg - Objective Vital Signs: Vital Signs Temperature 98.6 F 09/08/18 10:00 Pulse Rate 86 09/08/18 10:00 Respiratory Rate 20 09/08/18 10:00 Blood Pressure 112/70 09/08/18 10:00 O2 Sat by Pulse Oximetry (%) 91 L 09/08/18 09:00 General: Well developed. Obese. No acute distress. Head: Normocephalic. Atraumatic, Eyes: PERRLA, EOMI. Sclerae anicteric. Conjunctivae clear. Neck: Supple. (=) JVD. No bruits. Heart: Normal S1, S2: Regular rhythm and rate. No murmur. No gallop or rub. Lungs: Symmetrical air entry. Clear to auscultation. No crackle. No wheezing or rhonchi. Abdomen: Soft. Bowel sound positive. Non tender. No masses. Extremities: 1+ edema. No clubbing or cyanosis. PD 2+, equal bilaterally. Neuro: Intact, no focal findings. AAO X3. Labs: CBC, BMP 09/08/18 05:50 09/08/18 05:50 INR, PTT INR 1.08 (0.83-1.09) 09/02/18 19:10 Assessment/Plan 48 year old woman with a PMHx of COPD and is on home O2, HTN, HLD, previous CVA , recurrent admissions for heart failrue and paroxysmal Afib. Poorly compliant with diuretics admitted with 2 weeks of worsening lower extremity edema, abdominal distension, and progressive ANAYA. Her symptoms improved with IV diuretics. Echo 09/06/2018: Mild concentric LVH with normal wall motion and systolic function. LVEF = 60-65%. Moderate RA dilatation and hypokinesis. Moderate LA and severe RA dilatation. Mild MR. Moderate TR. PASP = 36 mmHg with estimated RAP = 3 mmHg (Dr. Lloyd). 1) Acute on chronic diastolic CHF with right heart failure and at least moderate pulmonary hypertension, likely seconary to severe Changed to PO Lasix 2) Paroxysmal Afib and prior CVA: Currently in sinus with improved heart rate on Verapamil 240 mg BID and metoprolol tartrate 25 mg BID. Continue Verapamil, metoprolol and Xarelto Outpatient cardiac follow up with Dr. Moe.
[2018-09-08 15:19] VITALS: BP 99/58; PULSE 74; TEMP 98.5
== END 2018-09-08 15:42 | disposition home or self-care (01) | DRG 133 ==
LOC: JER 16:11 → JERBED 21:13 → J4W 09-03 03:22
PROVIDERS: ADMIT Internal Medicine; ATTEND Internal Medicine
PROC: 3E0F7GC Introduction of Other Therapeutic Substance into Respiratory Tract, Via Natural or Artificial Opening (ICD-10-PCS; principal; 2018-09-03)
DX: J96.02 Acute respiratory failure with hypercapnia (principal); I50.33 Acute on chronic diastolic (congestive) heart failure; I27.20 Pulmonary hypertension, unspecified; Z99.81 Dependence on supplemental oxygen; J44.1 Chronic obstructive pulmonary disease with (acute) exacerbation; L03.116 Cellulitis of left lower limb; I11.0 Hypertensive heart disease with heart failure; E66.01 Morbid (severe) obesity due to excess calories; I48.0 Paroxysmal atrial fibrillation; E78.5 Hyperlipidemia, unspecified; E11.9 Type 2 diabetes mellitus without complications; Z68.38 Body mass index [BMI] 38.0-38.9, adult; Z86.73 Personal history of transient ischemic attack (TIA), and cerebral infarction without residual deficits; Z79.84 Long term (current) use of oral hypoglycemic drugs; Z87.891 Personal history of nicotine dependence
CPT/HCPCS: 36415; 36600; 71275-TC; 80048; 80053; 81003; 82375; 82728; 82803; 82962; 83036; 83050; 83540; 83550; 83735; 83880; 84100; 84134; 84484; 84703; 85025; 85027; 85610; 85730; 87040; 87186; 87804; 93005; 93010; 93306-TC; 93970-TC; 94640; 94660; 99284-25; J0131